=== PATIENT | female | born 1955 | race Caucasian/White ===

== ENCOUNTER 2017-05-25 14:12 | Inpatient (IN) | payer MEDICARE, MEDICAID ==
[~2017-05-25] VITALS: Ht 154.9 cm; Wt 68.0 kg
[~2017-05-25 14:12] MED LIST changes: -GLIM2TAB43 PO; -LEVO112T44 PO; -MECL25TA27 PO; -MELA5TAB6 PO
--- NOTE | 2017-05-25 14:47 | EKG ---
FACILITY: [facility] - [place] PATIENT NAME: FABIENNE ABERNATHY : [id number] MR: [id number] V: [id number] EXAM DATE: ORDERING PHYSICIAN: JAZZ PATTON TECHNOLOGIST: MARY KAY Ogden Reason : Blood Pressure : / mmHG Vent. Rate : 098 BPM Atrial Rate : 098 BPM P-R Int : 154 ms QRS Dur : 068 ms QT Int : 354 ms P-R-T Axes : 059 022 025 degrees QTc Int : 451 ms Normal sinus rhythm Normal ECG When compared with ECG of 03-DEC-2016 19:08, PA interval has decreased Confirmed by VALARIE GRIFFITH ([id number]) on 05/25/2017 4:41:00 PM Referred By: FERNANDEZ Confirmed By:VALARIE GRIFFITH
--- NOTE | 2017-05-25 14:56 | ER Report ---
History and Physical Time Seen By MD: 14:15 Hx. of Stated Complaint: MULTIPLE EPISODES OF SYNCOPE HPI/ROS CHIEF COMPLAINT: Dizziness, falls HISTORY OF PRESENT ILLNESS: Patient is a 61-year-old female who presents the ED with complaint of dizziness and frequent falls. She states that this started 4 days ago when she started noticing she feels imbalance. She states that sometimes she will just lower herself to the floor but other times she would fall. She does not believe she is she having syncopal episodes. She states that she does have a history of Mnire's disease and this feels like a very severe episode of that. She states that she did take some meclizine with some minimal relief. She has had some nausea but denies any vomiting. She denies any abdominal pain. She has not noted any diarrhea. The nurse noted today that she did have a slightly elevated temperature and 100.7. Height. She states that she has not noted a fever at home but has felt some chills intermittently. She denies much coughing. She has not noted any dysuria or hematuria. She denies any chest pain or shortness of breath. She does not normally wear oxygen at home. The nurse noted that her oxygen saturation on admission here was 86% on room air didn't place her on some oxygen therapy. His that she has been noticing a headache on the right back of her head. She states that she did fall and hit her head in the last 2 days. REVIEW OF SYSTEMS: Constitutional: No fever, no chills. Eyes: No discharge. ENT: No sore throat. Cardiovascular: No chest pain, no palpitations. Respiratory: See history of present illness. Gastrointestinal: See history of present illness. Genitourinary: See history of present illness. Musculoskeletal: No back pain. Skin: No rashes. Neurological: No headache. Allergies: Coded Allergies: atenolol (Verified Allergy, Intermediate, heart palpitations, 10/10/16) droperidol (Verified Allergy, Intermediate, DRIVES HER CRAZY, 10/10/16) oxycodone (Unverified Allergy, Unknown, HALLUCINATIONS, 10/10/16) "SAYS WHEN CAN COMBINED WITH ANESTHESIA CAUSES HALLUCINCATIONS" promethazine HCl (Verified Adverse Reaction, Intermediate, VOMITING, ) Sulfa (Sulfonamide Antibiotics) (Verified Adverse Reaction, Unknown, NAUSEA, 10/10/16) Home Meds Active Scripts Pantoprazole Sodium (PANTOPRAZOLE SODIUM) 40 Mg Tablet.dr, 1 TAB PO QDAY, #60 TAB.SR 3 Refills Prov:SETH PUENTES MD 11/21/16 Reported Medications Calcium Carbonate (TUMS) 200 Mg Tab.chew, 200 MG PO PRN, TAB.CHEW 11/21/16 Phenazopyridine Hcl (PHENAZOPYRIDINE HCL) 200 Mg Tablet, 200 MG PO TID Y for SPASMS, #30 TAB 0 Refills 10/18/16 Tramadol Hcl (TRAMADOL HCL) 50 Mg Tablet, 50 MG PO Q4-6H Y for PAIN, TAB 10/10/16 Aspirin (ASPIRIN) 81 Mg Tab.chew, 81 MG PO QDAY, TAB.CHEW 05/25/15 Estrogens Conjugated (PREMARIN) 0.3 Mg Tab, 0.3 MG PO QDAY, TAB 04/26/15 Metformin Hcl (METFORMIN HCL) 1,000 Mg Tablet, 1 TAB PO BID TAKE ONE TABLET BY MOUTH TWO TIMES A DAY 07/21/14 Lamotrigine (LAMICTAL) 200 Mg Tablet, 200 MG PO DAILY 07/21/14 Alprazolam (XANAX) 1 Mg Tablet, 1 TAB PO QID Y for ANXIETY TAKE ONE TABLET BY MOUTH FOUR TIMES A DAY 07/21/14 Thyroid,Pork (ARMOUR THYROID) Unknown Strength Tablet, 75 MG PO QDAY 07/21/14 Discontinued Reported Medications Dulaglutide (Trulicity) 0.75 Mg/0.5 Ml Pen.injctr, 0.75 MG IM 12/03/16 Ibuprofen (IBUPROFEN) 600 Mg Tablet, 1 TAB PO Q6H Y for PAIN, #20 TAB 0 Refills 10/18/16 Docusate Sodium (COLACE) 100 Mg Capsule, 100 MG PO BID Y for CONSTIPATION, #30 CAPSULE 0 Refills 10/18/16 Melatonin (MELATONIN) Unknown Strength Tablet, PO QHS 09/24/16 Reviewed Nurses Notes: Yes Old Medical Records Reviewed: Yes Hx Smoking: No Smoking Status: Never Smoker Exposure to Second Hand Smoke?: No Hx Substance Use Disorder: No Hx Alcohol Use: No Constitutional Vital Sign - Last 24 Hours 05/25/17 05/25/17 05/25/17 05/25/17 14:13 14:13 14:30 14:48 Temp 100.7 Pulse 102 Resp 16 33 B/P (MAP) 104/67 104/51 (68) Pulse Ox 94 99 96 O2 Delivery Nasal Cannula Nasal Cannula O2 Flow Rate 2.0 4.0 05/25/17 15:00 Pulse 96 Resp 27 Physical Exam General Appearance: The patient is alert, has no immediate need for airway protection and no signs of toxicity. She appears to be no acute distress. Eyes: Pupils equal and round no pallor or injection. EOMs are full bilaterally. ENT, Mouth: Mucous membranes are moist. Respiratory: There are no retractions, lungs are clear to auscultation. Cardiovascular: Regular rate and rhythm. Gastrointestinal: Abdomen is soft and non tender, no masses, bowel sounds normal. Neurological: Cranial nerves II-12 intact. Normal finger to nose test bilaterally. Skin: Warm and dry, no rashes. Musculoskeletal: Neck is supple non tender. Extremities are nontender, nonswollen and have full range of motion. DIFFERENTIAL DIAGNOSIS: After history and physical exam differential diagnosis was considered for dizziness including but not limited to peripheral and central causes of vertigo, orthostatic causes including dehydration, and blood loss. Medical Decision Making Data Points Result Diagram: 05/25/17 1605 05/25/17 1605 Laboratory Hematology Test 05/25/17 15:46 05/25/17 16:05 Urine Color Yellow Urine Clarity Cloudy Urine pH 5.0 pH (4.8-9.5) Urine Specific [place] 1.015 Urine Protein 100 mg/dL (NEGATIVE) Urine Glucose (UA) Negative mg/dL (NEGATIVE) Urine Ketones 20 mg/dL (NEGATIVE) Urine Blood Large (NEGATIVE) Urine Nitrite Negative (NEGATIVE) Urine Bilirubin Negative (NEGATIVE) Urine Urobilinogen Negative mg/dL (0.2-1.9) Urine Leukocyte Esterase Large (NEGATIVE) Urine RBC 9 /HPF (0-2/HPF) Urine WBC 362 /HPF (0-5/HPF) Urine WBC Clumps Many /HPF Urine Squamous Epithelial Cells Many /LPF (</=FEW) Urine Bacteria Many /HPF (NONE-FEW) Urine Mucus Few /HPF (NONE-FEW) Red Blood Count 4.08 M/uL (4.17-5.56) Mean Corpuscular Volume 83.7 fL (80.0-96.0) Mean Corpuscular Hemoglobin 28.8 pg (26.0-33.0) Mean Corpuscular Hemoglobin Concent 34.4 g/dL (32.0-36.0) Red Cell Distribution Width 14.0 % (11.5-14.5) Mean Platelet Volume 7.1 fL (7.2-11.1) Neutrophils (%) (Auto) 82.6 % (39.4-72.5) Lymphocytes (%) (Auto) 8.0 % (17.6-49.6) Monocytes (%) (Auto) 8.9 % (4.1-12.4) Eosinophils (%) (Auto) 0.1 % (0.4-6.7) Basophils (%) (Auto) 0.4 % (0.3-1.4) Nucleated RBC Relative Count (auto) 0.0 /100WBC Neutrophils # (Auto) 14.5 K/uL (2.0-7.4) Lymphocytes # (Auto) 1.4 K/uL (1.3-3.6) Monocytes # (Auto) 1.6 K/uL (0.3-1.0) Eosinophils # (Auto) 0.0 K/uL (0.0-0.5) Basophils # (Auto) 0.1 K/uL (0.0-0.1) Nucleated RBC Absolute Count (auto) 0.00 K/uL Sodium Level 135 mmol/L (137-145) Potassium Level 3.8 mmol/L (3.5-5.0) Chloride Level 98 mmol/L (98-107) Carbon Dioxide Level 21 mmol/L (22-31) Blood Urea Nitrogen 15 mg/dl (7-18) Creatinine 0.80 mg/dl (0.52-1.04) Glomerular Filtration Rate Calc > 60.0 Random Glucose 149 mg/dl (75-110) Calcium Level 9.0 mg/dl (8.4-10.2) Total Bilirubin 0.7 mg/dl (0.2-1.3) Aspartate Amino Transf (AST/SGOT) 15 U/L (0-35) Alanine Aminotransferase (ALT/SGPT) 41 U/L (0-56) Alkaline Phosphatase 103 U/L (0-126) Troponin I < 0.012 ng/ml Total Protein 6.7 gm/dl (6.3-8.2) Albumin 3.4 g/dl (3.5-5.0) Chemistry Test 05/25/17 15:46 05/25/17 16:05 Urine Color Yellow Urine Clarity Cloudy Urine pH 5.0 pH (4.8-9.5) Urine Specific [place] 1.015 Urine Protein 100 mg/dL (NEGATIVE) Urine Glucose (UA) Negative mg/dL (NEGATIVE) Urine Ketones 20 mg/dL (NEGATIVE) Urine Blood Large (NEGATIVE) Urine Nitrite Negative (NEGATIVE) Urine Bilirubin Negative (NEGATIVE) Urine Urobilinogen Negative mg/dL (0.2-1.9) Urine Leukocyte Esterase Large (NEGATIVE) Urine RBC 9 /HPF (0-2/HPF) Urine WBC 362 /HPF (0-5/HPF) Urine WBC Clumps Many /HPF Urine Squamous Epithelial Cells Many /LPF (</=FEW) Urine Bacteria Many /HPF (NONE-FEW) Urine Mucus Few /HPF (NONE-FEW) White Blood Count 17.5 k/uL (4.5-11.0) Red Blood Count 4.08 M/uL (4.17-5.56) Hemoglobin 11.8 g/dL (12.0-16.0) Hematocrit 34.1 % (34.0-47.0) Mean Corpuscular Volume 83.7 fL (80.0-96.0) Mean Corpuscular Hemoglobin 28.8 pg (26.0-33.0) Mean Corpuscular Hemoglobin Concent 34.4 g/dL (32.0-36.0) Red Cell Distribution Width 14.0 % (11.5-14.5) Platelet Count 407 K/uL (150-450) Mean Platelet Volume 7.1 fL (7.2-11.1) Neutrophils (%) (Auto) 82.6 % (39.4-72.5) Lymphocytes (%) (Auto) 8.0 % (17.6-49.6) Monocytes (%) (Auto) 8.9 % (4.1-12.4) Eosinophils (%) (Auto) 0.1 % (0.4-6.7) Basophils (%) (Auto) 0.4 % (0.3-1.4) Nucleated RBC Relative Count (auto) 0.0 /100WBC Neutrophils # (Auto) 14.5 K/uL (2.0-7.4) Lymphocytes # (Auto) 1.4 K/uL (1.3-3.6) Monocytes # (Auto) 1.6 K/uL (0.3-1.0) Eosinophils # (Auto) 0.0 K/uL (0.0-0.5) Basophils # (Auto) 0.1 K/uL (0.0-0.1) Nucleated RBC Absolute Count (auto) 0.00 K/uL Glomerular Filtration Rate Calc > 60.0 Calcium Level 9.0 mg/dl (8.4-10.2) Total Bilirubin 0.7 mg/dl (0.2-1.3) Aspartate Amino Transf (AST/SGOT) 15 U/L (0-35) Alanine Aminotransferase (ALT/SGPT) 41 U/L (0-56) Alkaline Phosphatase 103 U/L (0-126) Troponin I < 0.012 ng/ml Total Protein 6.7 gm/dl (6.3-8.2) Albumin 3.4 g/dl (3.5-5.0) Urinalysis Test 05/25/17 15:46 Urine Color Yellow Urine Clarity Cloudy Urine pH 5.0 pH (4.8-9.5) Urine Specific [place] 1.015 Urine Protein 100 mg/dL (NEGATIVE) Urine Glucose (UA) Negative mg/dL (NEGATIVE) Urine Ketones 20 mg/dL (NEGATIVE) Urine Blood Large (NEGATIVE) Urine Nitrite Negative (NEGATIVE) Urine Bilirubin Negative (NEGATIVE) Urine Urobilinogen Negative mg/dL (0.2-1.9) Urine Leukocyte Esterase Large (NEGATIVE) Urine RBC 9 /HPF (0-2/HPF) Urine WBC 362 /HPF (0-5/HPF) Urine WBC Clumps Many /HPF Urine Squamous Epithelial Cells Many /LPF (</=FEW) Urine Bacteria Many /HPF (NONE-FEW) Urine Mucus Few /HPF (NONE-FEW) EKG/Imaging EKG Interpretation 12 lead EKG: Rhythm: Normal sinus rhythm, rate 90 bpm Bridger: normal QRS: normal ST segments: No acute ST changes identified. There is some T-wave inversion in V1. Imaging CXR: IMPRESSION: 1. No acute cardiopulmonary process. Report Dictated By: Roberth Pressley at 05/25/2017 4:42 PM Report E-Signed By: Roberth Pressley at 05/25/2017 4:[address] Head: IMPRESSION: 1. Mild senescent changes without acute abnormality. Report Dictated By: Roberth Pressley at 05/25/2017 4:44 PM Report E-Signed By: Roberth Pressley at 05/25/2017 4:47 PM ED Course/Re-evaluation Clinical Indication for ER IV: Hydration ED Course Will obtain labs, EKG, chest x-ray, urinalysis, CT of the head. 05/25/2017 5:27:39 pm - discussed all labs, EKG, chest x-ray, CT of the head with patient. She does have some leukocytosis with left shift. Her urinalysis does indicate signs of infection. She does not have any acute intracranial injury. It appears that she does have a urinary tract infection and appears to be febrile from this. This could be a contributor factor to her falls and syncope. Discussed patient with Dr. Dubon, hospitalist, who will come and evaluate the patient. 05/25/2017 6:29:17 pm - was, Clara patient under his care. Patient was given 1 g IV Rocephin 1 L normal saline after blood cultures and lactate was completed. Decision to Disposition Date: May 25, 2017 Decision to Disposition Time: 18:29 Depart Departure Latest Vital Signs Vital Signs Date Time Temp Pulse Resp B/P (MAP) Pulse Ox O2 Delivery O2 Flow Rate FiO2 05/25/17 15:00 96 27 05/25/17 14:48 96 Nasal Cannula 4.0 05/25/17 14:30 104/51 (68) 05/25/17 14:13 100.7 Impression: Primary Impression: Urinary tract infection Additional Impressions: Falls Dizziness Condition: Improved Disposition: Admitted from ER Referrals: EILEEN HERNANDEZ PA-C (PCP) SENIOR POWER SCHEDULER/PA consult with MD: Examined Patient MD Consult Note: Dr. Dubon, Hospitalist Problem Qualifiers Primary Impression: Urinary tract infection Urinary tract infection type: acute cystitis Hematuria presence: without hematuria Qualified Codes: N30.00 - Acute cystitis without hematuria Additional Impressions: Falls Encounter type: initial encounter Qualified Codes: W19.XXXA - Unspecified fall, initial encounter JAZZ PATTON PA-C May 25, 2017 14:56
[2017-05-25 16:10] LABS: PLATELET COUNT, AUTOMATED 407 K/uL (150-450)
--- NOTE | 2017-05-25 16:47 | RADIOLOGY IMAGING REPORT ---
FACILITY: [facility] - [place] PATIENT NAME: Kristen Trinh : 1955 MR: [id number] V: [id number] EXAM DATE: ORDERING PHYSICIAN: JAZZ PATTON TECHNOLOGIST: Location: [facility] - [place] Patient: Kristen Trinh : 1955 Visit/Account:[id number] Date of Sevice: 05/25/2017 2 VIEWS CHEST INDICATION: Fever and dizziness. COMPARISON: 02/20/2015. FINDINGS: Cardiomediastinal silhouette and pulmonary vessels within normal limits. There is no focal infiltrate or lobar consolidation. There is no pneumothorax or pleural effusion. No nodule. Upper abdomen is unremarkable. No acute bony abnormality. IMPRESSION: 1. No acute cardiopulmonary process. Report Dictated By: Roberth Pressley at 05/25/2017 4:42 PM Report E-Signed By: Roberth Pressley at 05/25/2017 4:44 PM WSN:[id number]
--- NOTE | 2017-05-25 16:51 | RADIOLOGY IMAGING REPORT ---
[place] [facility] [place] NAME: Kristen Trinh : 1955 MR: [id number] V: [id number] EXAM DATE: ORDERING PHYSICIAN: JAZZ PATTON TECHNOLOGIST: Location: [facility] Patient: Kristen Trinh : 1955 Visit/Account:[id number] Date of Sevice: 05/25/2017 CT Head without contrast Indication: Dizziness and fever. Comparison: 04/26/2015. Technique: Axial CT images were obtained through the brain from the skull base to the vertex without administration of IV contrast. Reformatted coronal and sagittal images were also obtained. One of the following dose optimization techniques was utilized in the performance of this exam: autom ated exposure control; adjustment of the mA and/or kV according to the patient's size; or use of an i terative reconstruction technique. Specific details can be referenced in the facility's radiology CT exam operational policy. Findings: No evidence of mass, mass effect, or midline shift. No acute intracranial hemorrhage or acute territorial infarction. No extra axial fluid collection or hydrocephalus. Mild age-related cerebral atrophy. Mild periventric ular white matter ischemic changes consistent small vessel disease. Ortiz/white matter differentiation appears normal. Bony structures show no fractures or lesions. The visualized paranasal sinuses and mastoid air cells are clear. IMPRESSION: 1. Mild senescent changes without acute abnormality. Report Dictated By: Roberth Pressley at 05/25/2017 4:44 PM Report E-Signed By: Roberth Pressley at 05/25/2017 4:47 PM WSN:[id number]
[2017-05-25] MEDS ORDERED: cefTRIAXone 1 GM VIAL IVP ONE ×2 (17:30→20:30)
[2017-05-25] MEDS ORDERED: NS(*) 0.9% 1000 ML BAG 1,000 ML IV ONE (17:30)
[2017-05-25] MEDS ORDERED: NS(*) 0.9% 100 ML BAG 100 ML ONE (18:07)
[2017-05-25] MEDS ORDERED: traMADol 50 MG TAB PO PRN (19:35)
[2017-05-25 19:42] VITALS: BP 117/65
--- NOTE | 2017-05-25 20:28 | History & Physical ---
History of Present Illness History of Present Illness 61yo female with bipolar disorder and T2DM who presented to the ER for falls and inability to ambulate. She was in her normal state of health until 4 days ago. She developed chills, thirst, and dizziness with attempting to walk. It was different dizziness from her Meniere's disease. She denies the sensation of the room spinning or tunnel vision. She would try to get up and then would fall down. She would have to lay on the ground for awhile and then would be able to get up and walk. She denies LOC, but hit her head and body on numerous things throughout her house. It continued, such that she started crawling around her house. The chills have persisted. She denies cp/sob/dysuria/ abdominal pain/cough/nausea/vomiting/diarrhea. History Problems: (1) History of hysterectomy (2) History of thyroidectomy Status: Chronic (3) History of knee replacement procedure of right knee (4) Dysphagia Onset Date: 07/21/2014 Status: Chronic (5) Rectocele Status: Chronic (6) GERD (gastroesophageal reflux disease) Status: Chronic (7) Bipolar disorder Status: Chronic (8) Meniere disease Status: Acute (9) Heart palpitations (10) Diabetes mellitus type 2, uncontrolled Status: Chronic (11) Infection of wound due to methicillin resistant Staphylococcus aureus (MRSA ) Home Meds Active Scripts Pantoprazole Sodium (PANTOPRAZOLE SODIUM) 40 Mg Tablet.dr, 1 TAB PO QDAY, #60 TAB.SR 3 Refills Prov:SETH PUENTES MD 11/21/16 Reported Medications Calcium Carbonate (TUMS) 200 Mg Tab.chew, 200 MG PO PRN, TAB.CHEW 11/21/16 Phenazopyridine Hcl (PHENAZOPYRIDINE HCL) 200 Mg Tablet, 200 MG PO TID Y for SPASMS, #30 TAB 0 Refills 10/18/16 Tramadol Hcl (TRAMADOL HCL) 50 Mg Tablet, 50 MG PO Q4-6H Y for PAIN, TAB 10/10/16 Aspirin (ASPIRIN) 81 Mg Tab.chew, 81 MG PO QDAY, TAB.CHEW 05/25/15 Estrogens Conjugated (PREMARIN) 0.3 Mg Tab, 0.3 MG PO QDAY, TAB 04/26/15 Metformin Hcl (METFORMIN HCL) 1,000 Mg Tablet, 1 TAB PO BID TAKE ONE TABLET BY MOUTH TWO TIMES A DAY 07/21/14 Lamotrigine (LAMICTAL) 200 Mg Tablet, 200 MG PO DAILY 07/21/14 Alprazolam (XANAX) 1 Mg Tablet, 1 TAB PO QID Y for ANXIETY TAKE ONE TABLET BY MOUTH FOUR TIMES A DAY 07/21/14 Thyroid,Pork (ARMOUR THYROID) Unknown Strength Tablet, 75 MG PO QDAY 07/21/14 Discontinued Reported Medications Dulaglutide (Trulicity) 0.75 Mg/0.5 Ml Pen.injctr, 0.75 MG IM 12/03/16 Ibuprofen (IBUPROFEN) 600 Mg Tablet, 1 TAB PO Q6H Y for PAIN, #20 TAB 0 Refills 10/18/16 Docusate Sodium (COLACE) 100 Mg Capsule, 100 MG PO BID Y for CONSTIPATION, #30 CAPSULE 0 Refills 10/18/16 Melatonin (MELATONIN) Unknown Strength Tablet, PO QHS 09/24/16 Allergies: Coded Allergies: atenolol (Verified Allergy, Intermediate, heart palpitations, 10/10/16) droperidol (Verified Allergy, Intermediate, DRIVES HER CRAZY, 10/10/16) oxycodone (Unverified Allergy, Unknown, HALLUCINATIONS, 10/10/16) "SAYS WHEN CAN COMBINED WITH ANESTHESIA CAUSES HALLUCINCATIONS" promethazine HCl (Verified Adverse Reaction, Intermediate, VOMITING, ) Sulfa (Sulfonamide Antibiotics) (Verified Adverse Reaction, Unknown, NAUSEA, 10/10/16) Patient History: FH: bipolar disorder MOTHER Siblings FH: colon cancer FATHER MOTHER Hx Smoking: No Smoking Status: Never Smoker Exposure to Second Hand Smoke?: No Caffeine Intake: Soda Caffeine/Cups Per Day: 1 Hx Alcohol Use: Yes Hx Substance Use Disorder: No Social Drug Use: Never History of IV Drug Use: No Review of Systems All Systems Reviewed/Normal: Yes, Except as Noted Exam Vital Signs Vital Signs Date Time Temp Pulse Resp B/P (MAP) Pulse Ox O2 Delivery O2 Flow Rate FiO2 05/25/17 19:42 98.2 89 18 117/65 (82) 99 Nasal Cannula 2.0 General Appearance: Alert, Awake, No Acute Distress (, but tearful at times. Breathing comfortably.) Neuro: No Gross deficits Eyes: PERRLA ENT: Moist Mucous Membranes Cardiovascular: Regular Rate and Rhythm Respiratory: Clear to Auscultation GI: Abd Soft and Non-Tender Extremities: No Edema Integumentary: No Jaundice, No Cyanosis Medical Decision Making Data Points Result Diagram: 05/25/17 1605 05/25/17 1605 Item Value Date Time Neutrophils (%) (Auto) 82.6 % H 05/25/17 1605 Lymphocytes (%) (Auto) 8.0 % L 05/25/17 1605 Monocytes (%) (Auto) 8.9 % 05/25/17 1605 Eosinophils (%) (Auto) 0.1 % L 05/25/17 1605 Basophils (%) (Auto) 0.4 % 05/25/17 1605 Lactate 0.9 mmol/L 05/25/17 1831 Aspartate Amino Transf (AST/SGOT) 15 U/L 05/25/17 1605 Alanine Aminotransferase (ALT/SGPT) 41 U/L 05/25/17 1605 Alkaline Phosphatase 103 U/L 05/25/17 1605 Troponin I < 0.012 ng/ml 05/25/17 1605 Urine Leukocyte Esterase Large H 05/25/17 1546 Urine RBC 9 /HPF 05/25/17 1546 Urine WBC 362 /HPF 05/25/17 1546 Urine WBC Clumps Many /HPF 05/25/17 1546 Urine Squamous Epithelial Cells Many /LPF H 05/25/17 1546 Urine Bacteria Many /HPF H 05/25/17 1546 Urine Ketones 20 mg/dL H 05/25/17 1546 Urine Protein 100 mg/dL 05/25/17 1546 EKG / Imaging EKG Interpretation Vent. Rate : 098 BPM Atrial Rate : 098 BPM P-R Int : 154 ms QRS Dur : 068 ms QT Int : 354 ms P-R-T Axes : 059 022 025 degrees QTc Int : 451 ms Normal sinus rhythm Normal ECG When compared with ECG of 03-DEC-2016 19:08, VT interval has decreased Confirmed by VALARIE GRIFFITH ([id number]) on 05/25/2017 4:41:00 PM Imaging CXR - 1. No acute cardiopulmonary process. Head CT - 1. Mild senescent changes without acute abnormality. Assessment and Plan Problems: (1) Urinary tract infection Status: Acute Assessment & Plan: She presented with 4 days of chills and weakness with falls. She is febrile, has an elevated wbc and has many wbc on the UA (she refused a catheter specimen). Her lactate, BP are normal. She was given a dose of Rocephin in the ER which will be continued but at 2g q24h. Blood and urine cultures are pending. (2) Falls Status: Acute Assessment & Plan: It appears to be related to the UTI. She has a h/o of Meniere's but she reports these symptoms of dizziness are different. She is getting hydrated and then will try to ambulate in the morning and potentially check orthostatic pressures if she remains symptomatic. (3) Bipolar disorder Status: Chronic Assessment & Plan: Continue Lamictal and prn Xanax. (4) Dysphagia Status: Chronic Assessment & Plan: She has had a dilatation for a stricture, but still having some problems. She is followed by Dr. Puentes. On Protonix chronically. (5) Diabetes mellitus type 2, uncontrolled Status: Chronic Assessment & Plan: She is chronically on metformin and Amaryl. Will hold metformin until she is less acutely ill. (6) History of thyroidectomy Status: Chronic Assessment & Plan: Continue levothyroxine. Copies to: EILEEN HERNANDEZ PA-C; [facility] [employer] RN Venous Thromboembolism Antithrombotics Is Pt On Any Antithrombotics?: No Exam Sepsis Risk: No Definite Risk Problem Qualifiers (1) Urinary tract infection: Urinary tract infection type: acute cystitis Hematuria presence: without hematuria Qualified Codes: N30.00 - Acute cystitis without hematuria (2) Falls: Encounter type: initial encounter Qualified Codes: W19.XXXA - Unspecified fall, initial encounter VALARIE GRIFFITH MD May 25, 2017 20:28
[2017-05-25] MEDS ORDERED: LEVO112T44 PO (20:31)
[2017-05-25] MEDS ORDERED: METO25TA93 PO (20:31)
[2017-05-25] MEDS ORDERED: MECL25TA27 PO (20:31)
[2017-05-25] MEDS ORDERED: GLIM2TAB43 PO (20:31)
[2017-05-25] MEDS ORDERED: MELA5TAB6 PO (20:31)
[2017-05-25] MEDS: MELATONIN 3 MG TAB PO SCH (21:00)
[2017-05-25] MEDS: NS(*) 0.9% 1000 ML BAG 1,000 ML IV PRN (21:11)
[2017-05-25] MEDS: lamoTRIgine 100 MG TAB PO SCH (21:12)
[2017-05-25] MEDS: ACETAMINOPHEN 500 MG TAB PO PRN (22:19)
[2017-05-25] MEDS: ALPRAZolam 1 MG TAB PO PRN (22:19)
[2017-05-25] MEDS: INSULIN HUM LISPRO 100 UN/ML 3 ML VIAL SUBQ PRN (22:19)
[2017-05-26] VITALS (7 sets, daily range): BP systolic 90–126; BP diastolic 51–69; Ht 154.9 cm; Wt 68.0 kg
[2017-05-26] MEDS: ACETAMINOPHEN 500 MG TAB PO PRN ×2 (06:26→19:59)
[2017-05-26] MEDS: LEVOTHYROXINE SOD 0.112 MG TAB PO SCH (06:26)
[2017-05-26] MEDS: NS(*) 0.9% 1000 ML BAG 1,000 ML IV PRN ×2 (07:13→18:01)
--- NOTE | 2017-05-26 08:33 | Hospitalist Progress Note ---
Subjective Progress Notes Subjective She has had fevers to 101 overnight. Some nausea this morning. Physical Exam Vital Signs Date Time Temp Pulse Resp B/P (MAP) Pulse Ox O2 Delivery O2 Flow Rate FiO2 05/26/17 07:32 91 Nasal Cannula 0.5 05/26/17 07:32 100.5 94 16 106/53 (70) Intake and Output 05/27/17 07:00 Intake Total 1000 ml Balance 1000 ml IV Total 1000 ml # Voids 1 General Appearance: Alert, Awake, No Acute Distress GI: Soft and Non-Tender Result Diagram: 05/25/17 1605 05/25/17 1605 Assessment and Plan Problems: (1) Urinary tract infection Status: Acute Assessment & Plan: She presented with 4 days of chills and weakness with falls. She is febrile, has an elevated wbc and has many wbc on the UA (she refused a catheter specimen). Her lactate, BP are normal. She was given a dose of Rocephin in the ER which will be continued but at 2g q24h. Blood and urine cultures are pending. Awaiting labs from this morning. (2) Falls Status: Acute Assessment & Plan: It appears to be related to the UTI. She has a h/o of Meniere's but she reports these symptoms of dizziness are different. She is getting hydrated and then will try to ambulate and potentially check orthostatic pressures if she remains symptomatic. (3) Bipolar disorder Status: Chronic Assessment & Plan: Continue Lamictal and prn Xanax. (4) Dysphagia Onset Date: 07/21/2014 Status: Chronic Assessment & Plan: She has had a dilatation for a stricture, but still having some problems. She is followed by Dr. Mccarthy. On Protonix chronically. (5) Diabetes mellitus type 2, uncontrolled Status: Chronic Assessment & Plan: She is chronically on metformin and Amaryl. Will hold metformin until she is less acutely ill. (6) History of thyroidectomy Status: Chronic Assessment & Plan: Continue levothyroxine. Exam Sepsis Risk: Sepsis Risk Problem Qualifiers (1) Urinary tract infection: Urinary tract infection type: acute cystitis Hematuria presence: without hematuria Qualified Codes: N30.00 - Acute cystitis without hematuria (2) Falls: Encounter type: initial encounter Qualified Codes: W19.XXXA - Unspecified fall, initial encounter VALARIE GRIFFITH MD May 26, 2017 08:33
[2017-05-26] MEDS: PANTOPRAZOLE SOD 40 MG TABEC PO SCH (08:47)
[2017-05-26] MEDS: ASPIRIN 81 MG CHEW PO SCH (08:54)
[2017-05-26] MEDS: ESTROGENS CONJ 0.3 MG TAB PO SCH (08:54)
[2017-05-26] MEDS: ENOXAPARIN 40 MG/0.4ML SYR SC SCH (08:56)
[2017-05-26] MEDS: INSULIN HUM LISPRO 100 UN/ML 3 ML VIAL SUBQ PRN ×2 (08:56→12:30)
[2017-05-26 09:01] LABS: PLATELET COUNT, AUTOMATED 395 K/uL (150-450)
[2017-05-26] MEDS: ONDANSETRON 4 MG/2 ML VIAL IVP PRN ×2 (09:01→20:00)
[2017-05-26] MEDS: metFORMIN HCL 500 MG TAB PO SCH ×2 (10:28→16:22)
[2017-05-26] MEDS: GLIMEPIRIDE 2 MG TAB PO SCH (12:30)
[2017-05-26] MEDS: ALPRAZolam 1 MG TAB PO PRN (16:22)
[2017-05-26] MEDS: cefTRIAXone 2 GM VIAL IVP SCH (18:32)
[2017-05-26] MEDS: MELATONIN 3 MG TAB PO SCH (21:00)
[2017-05-26] MEDS: lamoTRIgine 100 MG TAB PO SCH (21:04)
[2017-05-27] VITALS (7 sets, daily range): BP systolic 102–135; BP diastolic 57–75
[2017-05-27] MEDS: ACETAMINOPHEN 500 MG TAB PO PRN ×3 (04:08→23:37)
[2017-05-27] MEDS: ONDANSETRON 4 MG/2 ML VIAL IVP PRN (05:13)
[2017-05-27] MEDS: LEVOTHYROXINE SOD 0.112 MG TAB PO SCH (05:20)
[2017-05-27 06:19] LABS: PLATELET COUNT, AUTOMATED 389 K/uL (150-450)
[2017-05-27] MEDS: NS(*) 0.9% 1000 ML BAG 1,000 ML IV PRN (06:34)
[2017-05-27] MEDS: PANTOPRAZOLE SOD 40 MG TABEC PO SCH (08:07)
[2017-05-27] MEDS: ASPIRIN 81 MG CHEW PO SCH (08:14)
[2017-05-27] MEDS: ENOXAPARIN 40 MG/0.4ML SYR SC SCH (08:14)
[2017-05-27] MEDS: ESTROGENS CONJ 0.3 MG TAB PO SCH (08:15)
[2017-05-27] MEDS: metFORMIN HCL 500 MG TAB PO SCH ×2 (08:15→17:24)
[2017-05-27] MEDS ORDERED: NS(*) 0.9% 1000 ML BAG 1,000 ML IV PRN (09:53)
[2017-05-27] MEDS: ALPRAZolam 1 MG TAB PO PRN ×2 (10:28→21:50)
[2017-05-27] MEDS: MECLIZINE HCL 25 MG TAB PO PRN ×2 (11:41→19:36)
[2017-05-27] MEDS: GLIMEPIRIDE 2 MG TAB PO SCH (12:16)
--- NOTE | 2017-05-27 13:22 | Hospitalist Progress Note ---
Subjective Progress Notes Subjective Patient has complaints of diarrhea this morning. She also has been dizzy, which she believes is her Mienere's disease. Patient Complains of: Cardiovascular: No: Chest Pain Respiratory: No: Shortness of Breath Gastrointestinal: No Nausea, No Vomiting Physical Exam Vital Signs Date Time Temp Pulse Resp B/P (MAP) Pulse Ox O2 Delivery O2 Flow Rate FiO2 05/27/17 11:30 98.5 18 102/69 (80) 91 Room Air 05/27/17 07:30 2.0 05/27/17 07:30 93 81 Intake and Output 05/28/17 07:00 Intake Total 126 ml Balance 126 ml IV Total 126 ml # Voids 2 # Bowel Movements 2 General Appearance: Alert, Awake, No Acute Distress, Afebrile Cardiovascular: Regular Rate and Rhythm Respiratory: No Respiratory Distress, Clear to Auscultation GI: Soft and Non-Tender : Normal Extremities: No Edema Psych: Alert & Oriented X3 Result Diagram: 05/27/17 0555 05/27/17 0555 Assessment and Plan Problems: (1) Urinary tract infection Status: Acute Assessment & Plan: She presented with 4 days of chills and weakness with falls. She is febrile, has an elevated WBC and has many WBC on the UA (she refused a catheter specimen). Her lactate, BP are normal. She was given a dose of Rocephin in the ER which will be continued but at 2g q24h. Blood cultures are negative and urine culture shows Klebsiella. Rocephin is susceptible to the infection. (2) Falls Status: Acute Assessment & Plan: It appears to be related to the UTI. She has a h/o of Meniere's but she reports these symptoms of dizziness are different. She would like to try the Meclizine to see if the helps her dizziness. (3) Diarrhea Status: Acute Assessment & Plan: She has had diarrhea since she has been admitted. The patient denies abdominal pain, nausea or vomiting. She has decreased potassium this morning to 3.2. She will receive a K-Allen and will get Potassium added to her normal saline. She will also have her stool tested to assure she doesn't have C-Diff. (4) Bipolar disorder Status: Chronic Assessment & Plan: Continue Lamictal and prn Xanax. (5) Dysphagia Onset Date: 07/21/2014 Status: Chronic Assessment & Plan: She has had a dilatation for a stricture, but still having some problems. She is followed by Dr. Mccarthy. (6) Diabetes mellitus type 2, uncontrolled Status: Chronic Assessment & Plan: She is chronically on metformin and Amaryl. Will hold metformin until she is less acutely ill. (7) History of thyroidectomy Status: Chronic Assessment & Plan: Continue levothyroxine. Exam Sepsis Risk: No Definite Risk Problem Qualifiers (1) Urinary tract infection: Urinary tract infection type: acute cystitis Hematuria presence: without hematuria Qualified Codes: N30.00 - Acute cystitis without hematuria (2) Falls: Encounter type: initial encounter Qualified Codes: W19.XXXA - Unspecified fall, initial encounter RANI HENNING May 27, 2017 13:22
[2017-05-27] MEDS ORDERED: KCL (*) 20 MEQ/100 ML PREMIX 100 ML IV ONE (13:30)
[2017-05-27] MEDS ORDERED: KCL/NS* 20 MEQ/1000 ML PREMIX 1,000 ML IV SCH ×2 (15:00→22:48)
--- NOTE | 2017-05-27 16:24 | Medical Nutrition Therapy ---
Nutrition Anthropometrics Height (Inches): 61.00 Height (Calculated Centimeters: 154.329037 Weight (Pounds): 150 Weight (Calculated Kilograms): 68.039 BMI Calculated: 28.34 Dung Nutrition Score: Adequate Dung Nutrition Risk Score: 17 Dietary Referral Nutrition Risk Factors: Unplanned Loss >10lbs Nutrition Risk Comment: dx'd with DM2 and more recently goiter and thyroid disease Physical Findings Physical Appearance: Overweight BMI 25-29 Skin Appearance Skin Appearance: Edema Edema Location Modifier: Edema Location: Type of Edema: Degree of Edema: Gastrointestinal Symptoms GI Symtoms: Change in Bowel Pattern Tube Present: Bowel Sounds: Recent Bowel Pattern: Stool Characteristics: Nutritional Diagnosis Nutritional Risk Acuity 2: Unintended Wt Loss >5%/mo Nutritional Risk Acuity 3: Fair Appetite, Nausea Past Medical History: dysphagia, bipolar, T2DM Nutritional Acuity: 2-Moderate Nutrition Diagnosis: Involuntary Wt. Loss Nutrition Etiology: Physiological Causes Nutrition Problem/Etiology/Sym: per pt reported unintended wt loss > 10# Energy Requirement: 1550 (M- StJ) Protein Requirement: 68 (1gm/kg) Fluid Requirement: 2040 (30ml/kg) Diet Type: Diabetic Nutrition Intervention: Cont diet as ordered, Encourage intake Nutrition Monitoring & Eval Nutrition Goals: Eat 75-100% Meal RD Patient Assessment Time: [address] Assessment Type: RD Assessment Patient Nutrition Acuity: 2-Moderate Follow Up Date: Jun 01, 2017 Nutritional Comment: 05/25 Pt admitted with frequent fall r/t UTI. Pt has dx of T2DM. BG elevated up to 247. Pt has hx of dyspagia but no diet modifications. Pt on ADA diet. ate 75% of first meal in facility. Pt reporting diarrhea and nausea which may be affecting intake. Pt reporting wt loss. BMI is in overwt class. Will cont to monitor and encourage intake. 05/27 Attempted to discuss wt loss, pt asleept X2 attempts. Pt eating 75% of meals. Will cont to monitor and encourage intake. SHAYE VERA May 27, 2017 16:24
[2017-05-27] MEDS: cefTRIAXone 2 GM VIAL IVP SCH (18:51)
[2017-05-27] MEDS: MELATONIN 3 MG TAB PO SCH (21:00)
[2017-05-27] MEDS: lamoTRIgine 100 MG TAB PO SCH (21:50)
[2017-05-27] MEDS: INSULIN HUM LISPRO 100 UN/ML 3 ML VIAL SUBQ PRN (21:55)
[2017-05-27] MEDS: LOPERAMIDE HCL 2 MG CAP PO PRN (23:37)
[2017-05-28] VITALS (8 sets, daily range): BP systolic 82–165; BP diastolic 48–100
[2017-05-28] MEDS ORDERED: NS(*) 0.9% 500 ML BAG 500 ML IV ONE (04:30)
[2017-05-28] MEDS ORDERED: NS(*) 0.9% 500 ML BAG 500 ML ONE (04:31)
[2017-05-28] MEDS: LEVOTHYROXINE SOD 0.112 MG TAB PO SCH (05:15)
[2017-05-28] MEDS: metFORMIN HCL 500 MG TAB PO SCH ×2 (08:16→17:26)
[2017-05-28] MEDS: ENOXAPARIN 40 MG/0.4ML SYR SC SCH (08:17)
[2017-05-28] MEDS: ESTROGENS CONJ 0.3 MG TAB PO SCH (08:17)
[2017-05-28] MEDS: ASPIRIN 81 MG CHEW PO SCH (08:18)
[2017-05-28 08:37] LABS: PLATELET COUNT, AUTOMATED 441 K/uL (150-450)
[2017-05-28] MEDS: LOPERAMIDE HCL 2 MG CAP PO PRN ×2 (08:55→16:45)
[2017-05-28] MEDS: MECLIZINE HCL 25 MG TAB PO PRN (08:55)
[2017-05-28] MEDS ORDERED: INFLUENZA VIRUS VAC 0.5 ML SYR IM ONLY ONE (09:00)
[2017-05-28] MEDS: KCL/NS* 20 MEQ/1000 ML PREMIX 1,000 ML IV SCH (10:57)
[2017-05-28] MEDS: MAGNESIUM SUL* 2 GM/50 ML IVPB 50 ML IVPB ONE ×2 (11:00→11:06)
[2017-05-28] MEDS: ACETAMINOPHEN 500 MG TAB PO PRN ×2 (12:26→20:15)
[2017-05-28] MEDS: GLIMEPIRIDE 2 MG TAB PO SCH (12:26)
--- NOTE | 2017-05-28 13:15 | Hospitalist Progress Note ---
Subjective Progress Notes Subjective This morning, patient still has complaints of dizziness. She has tried the meclizine and feels this might have helped a little bit, but still feels like she could fall. She feels very weak also. The patient reports the diarrhea has improved today, with only one bowel movement this morning. Patient Complains of: Cardiovascular: No: Chest Pain Respiratory: No: Shortness of Breath Physical Exam Vital Signs Date Time Temp Pulse Resp B/P (MAP) Pulse Ox O2 Delivery O2 Flow Rate FiO2 05/28/17 11:19 98.6 92 16 109/61 (77) 91 Room Air 05/28/17 05:10 1.0 Intake and Output 05/29/17 07:00 Intake Total 0 ml Balance 0 ml Intake Oral 0 ml # Voids 2 # Bowel Movements 1 General Appearance: Alert, Awake, No Acute Distress, Afebrile Cardiovascular: Regular Rate and Rhythm Respiratory: No Respiratory Distress, Clear to Auscultation GI: Soft and Non-Tender Extremities: Soft and Non Tender Psych: Alert & Oriented X3 Result Diagram: 05/28/1782605/28/17826 Assessment and Plan Problems: (1) Urinary tract infection Status: Acute Assessment & Plan: She presented with 4 days of chills and weakness with falls. She is febrile, has an elevated WBC and has many WBC on the UA (she refused a catheter specimen). Her lactate, BP are normal. She was given a dose of Rocephin in the ER which will be continued but at 2g q24h. Blood cultures are negative and urine culture shows Klebsiella. Rocephin is susceptible to the infection. Today, the patient's IV infiltrated and the patient has refused another IV at this time. I spoke with patient about going home today, the patient feels like she would not be able to go home safely secondary to weakness. (2) Falls Status: Acute Assessment & Plan: It appears to be related to the UTI. She has a h/o of Meniere's but she reports these symptoms of dizziness are different. The Meclizine has seemed to decrease some of the dizziness, however, the patient still has symptoms. (3) Diarrhea Status: Acute Assessment & Plan: She has had diarrhea a few days before she was admitted. The patient denies abdominal pain, nausea or vomiting. She had decreased potassium yesterday to 3.2. She was given a K-Allen and Potassium in normal saline, which increased her Potassium to 4.1 today. Her stool was tested and was negative for C-Diff. (4) Bipolar disorder Status: Chronic Assessment & Plan: Continue Lamictal and prn Xanax. (5) Dysphagia Onset Date: 07/21/2014 Status: Chronic Assessment & Plan: She has had a dilatation for a stricture, but still having some problems. She is followed by Dr. Mccarthy. (6) Diabetes mellitus type 2, uncontrolled Status: Chronic Assessment & Plan: She is chronically on metformin and Amaryl. (7) History of thyroidectomy Status: Chronic Assessment & Plan: Continue levothyroxine. (8) Hypomagnesemia Status: Acute Assessment & Plan: Her magnesium is 1.4 today. Magnesium was ordered IV, but the patient has refused to get another IV for infusion. She cannot receive oral magnesium secondary to the diarrhea. Exam Sepsis Risk: Sepsis Risk Problem Qualifiers (1) Urinary tract infection: Urinary tract infection type: acute cystitis Hematuria presence: without hematuria Qualified Codes: N30.00 - Acute cystitis without hematuria (2) Falls: Encounter type: initial encounter Qualified Codes: W19.XXXA - Unspecified fall, initial encounter RANI HENNING [employer] QU[employer] INSTRUMENT SPECIALIST May 28, 2017 13:14
[2017-05-28] MEDS: DIPHENOX/ATROPINE 2.5-0.025MG PO PRN (18:18)
[2017-05-28] MEDS: ALPRAZolam 1 MG TAB PO PRN (20:15)
[2017-05-28] MEDS: lamoTRIgine 100 MG TAB PO SCH (20:15)
[2017-05-28] MEDS: CEPHALEXIN MONO 500 MG CAP PO SCH (20:15)
[2017-05-28] MEDS: MELATONIN 3 MG TAB PO SCH (20:15)
[2017-05-29 03:43] VITALS: BP 137/72
[2017-05-29] MEDS: LEVOTHYROXINE SOD 0.112 MG TAB PO SCH (05:35)
[2017-05-29] MEDS: KCL/NS* 20 MEQ/1000 ML PREMIX 1,000 ML IV SCH (06:57)
[2017-05-29 07:25] VITALS: BP 153/85
[2017-05-29] MEDS: ESTROGENS CONJ 0.3 MG TAB PO SCH (08:35)
[2017-05-29] MEDS: ENOXAPARIN 40 MG/0.4ML SYR SC SCH (08:37)
[2017-05-29] MEDS: ASPIRIN 81 MG CHEW PO SCH (08:37)
[2017-05-29] MEDS: metFORMIN HCL 500 MG TAB PO SCH ×2 (08:37→16:39)
[2017-05-29] MEDS: CEPHALEXIN MONO 500 MG CAP PO SCH ×4 (08:59→20:55)
[2017-05-29] MEDS: MECLIZINE HCL 25 MG TAB PO PRN (09:57)
[2017-05-29] MEDS ORDERED: MAGNESIUM SUL* 2 GM/50 ML IVPB 50 ML IVPB ONE (10:10)
--- NOTE | 2017-05-29 10:29 | Hospitalist Progress Note ---
Subjective Progress Notes Subjective Patient states she is starting to feel better. She still c/o dizziness. She worked with physical therapy today for the dizziness. The patient feels this is helping her. The patient has had no further episodes of diarrhea. Patient Complains of: Neurological: Dizziness Cardiovascular: No: Chest Pain Respiratory: No: Shortness of Breath Physical Exam Vital Signs Date Time Temp Pulse Resp B/P (MAP) Pulse Ox O2 Delivery O2 Flow Rate FiO2 05/29/17 07:28 90 Room Air 05/29/17 07:25 99.8 16 153/85 (107) 05/29/17 03:43 85 05/28/17 05:10 1.0 Intake and Output 05/30/17 07:00 Intake Total 0 ml Balance 0 ml Intake Oral 0 ml General Appearance: Alert, Awake, No Acute Distress, Afebrile Cardiovascular: Regular Rate and Rhythm Respiratory: No Respiratory Distress, Clear to Auscultation GI: Soft and Non-Tender Psych: Alert & Oriented X3, Appropriate Mood & Affect Result Diagram: 05/28/17 0827 05/29/17 0539 Assessment and Plan Problems: (1) Urinary tract infection Status: Acute Assessment & Plan: She presented with 4 days of chills and weakness with falls. She is febrile, has an elevated WBC and has many WBC on the UA (she refused a catheter specimen). Her lactate, BP are normal. She was given a dose of Rocephin in the ER which was continued at 2g q24h. Blood cultures are negative and urine culture shows Klebsiella. Rocephin was susceptible to the infection. She was given oral Keflex last night instead of IV antibiotics. (2) Falls Status: Acute Assessment & Plan: She has a h/o of Meniere's but she reports these symptoms of dizziness are different. The Meclizine has seemed to decrease some of the dizziness, however, the patient still has symptoms. Physical therapy is working with patient for Benign Paroxysmal Positional Vertigo with Rea-[place] Maneuvers. (3) Diarrhea Status: Acute Assessment & Plan: She has had diarrhea a few days before she was admitted. The patient denies abdominal pain, nausea or vomiting. She had decreased potassium 05/27/17 to 3.2. She was given a K-Allen and Potassium in normal saline, which increased her Potassium to 4.1 yesterday. Her stool was negative for C-Diff. (4) Bipolar disorder Status: Chronic Assessment & Plan: Continue Lamictal and prn Xanax. (5) Dysphagia Onset Date: 07/21/2014 Status: Chronic Assessment & Plan: She has had a dilatation for a stricture, but still having some problems. She is followed by Dr. Mccarthy. (6) Diabetes mellitus type 2, uncontrolled Status: Chronic Assessment & Plan: She is chronically on metformin and Amaryl. (7) History of thyroidectomy Status: Chronic Assessment & Plan: Continue levothyroxine. (8) Hypomagnesemia Status: Acute Assessment & Plan: Her magnesium is 1.2 today. Magnesium was ordered IV, along with telemetry. The patient agrees for the infusion today. Exam Sepsis Risk: No Definite Risk Problem Qualifiers (1) Urinary tract infection: Urinary tract infection type: acute cystitis Hematuria presence: without hematuria Qualified Codes: N30.00 - Acute cystitis without hematuria (2) Falls: Encounter type: initial encounter Qualified Codes: W19.XXXA - Unspecified fall, initial encounter RANI HENNING May 29, 2017 10:29
[2017-05-29 10:37] LABS: PLATELET COUNT, AUTOMATED 519 K/uL (150-450)
[2017-05-29] MEDS ORDERED: NS(*) 0.9% 500 ML BAG 500 ML ONE (10:47)
[2017-05-29 11:36] VITALS: BP 148/85
[2017-05-29] MEDS: GLIMEPIRIDE 2 MG TAB PO SCH (12:00)
[2017-05-29 15:31] VITALS: BP 126/92
[2017-05-29] MEDS: LOPERAMIDE HCL 2 MG CAP PO PRN ×3 (16:39→21:32)
[2017-05-29 19:54] VITALS: BP 148/91
[2017-05-29] MEDS: ONDANSETRON 4 MG/2 ML VIAL IVP PRN (20:54)
[2017-05-29] MEDS: lamoTRIgine 100 MG TAB PO SCH (20:55)
[2017-05-29] MEDS: ALPRAZolam 1 MG TAB PO PRN (20:55)
[2017-05-29] MEDS: MELATONIN 3 MG TAB PO SCH (20:55)
[2017-05-30] MEDS: KCL/NS* 20 MEQ/1000 ML PREMIX 1,000 ML IV SCH ×2 (02:57→22:57)
[2017-05-30 03:16] VITALS: BP 121/73
[2017-05-30] MEDS: LEVOTHYROXINE SOD 0.112 MG TAB PO SCH (06:04)
[2017-05-30 06:18] LABS: PLATELET COUNT, AUTOMATED 492 K/uL (150-450)
--- NOTE | 2017-05-30 09:15 | Hospitalist Progress Note ---
Subjective Progress Notes Subjective Patient states she is starting to feel better everyday. She had no acute events overnight per staff. Patient Complains of: Cardiovascular: No: Chest Pain Respiratory: No: Shortness of Breath Physical Exam Vital Signs Date Time Temp Pulse Resp B/P (MAP) Pulse Ox O2 Delivery O2 Flow Rate FiO2 05/30/17 03:16 99.0 82 20 121/73 (89) 91 Room Air 05/28/17 05:10 1.0 General Appearance: Alert, Awake, No Acute Distress, Afebrile Cardiovascular: Regular Rate and Rhythm Respiratory: No Respiratory Distress, Clear to Auscultation Psych: Alert & Oriented X3, Appropriate Mood & Affect Result Diagram: 05/30/1752005/30/17520 Assessment and Plan Problems: (1) Urinary tract infection Status: Acute Assessment & Plan: She presented with 4 days of chills and weakness with falls. She is febrile, has an elevated WBC and has many WBC on the UA (she refused a catheter specimen). Her lactate, BP are normal. She was given a dose of Rocephin in the ER which was continued at 2g q24h. Blood cultures are negative and urine culture shows Klebsiella. Rocephin was susceptible to the infection. Antibiotics have stopped secondary to therapy completion. (2) Falls Status: Acute Assessment & Plan: She has a h/o of Meniere's but she reports these symptoms of dizziness are different. The Meclizine has seemed to decrease some of the dizziness, however, the patient still has symptoms. Physical therapy will continue with patient for Benign Paroxysmal Positional Vertigo with Rea-[place] Maneuvers. (3) Diarrhea Status: Acute Assessment & Plan: She has had diarrhea a few days before she was admitted. The patient denies abdominal pain, nausea or vomiting. She had decreased potassium 05/27/17 to 3.2. She was given a K-Allen and Potassium in normal saline, which increased her Potassium to a normal range. Her stool was negative for C-Diff. (4) Bipolar disorder Status: Chronic Assessment & Plan: Continue Lamictal and prn Xanax. (5) Dysphagia Onset Date: 07/21/2014 Status: Chronic Assessment & Plan: She has had a dilatation for a stricture, but still having some problems. She is followed by Dr. Mccarthy. (6) Diabetes mellitus type 2, uncontrolled Status: Chronic Assessment & Plan: She is chronically on metformin and Amaryl. (7) History of thyroidectomy Status: Chronic Assessment & Plan: Continue levothyroxine. (8) Hypomagnesemia Status: Acute Assessment & Plan: Her magnesium is 1.3 today. Magnesium was ordered IV. The patient agrees for the infusion today. Exam Sepsis Risk: No Definite Risk Problem Qualifiers (1) Urinary tract infection: Urinary tract infection type: acute cystitis Hematuria presence: without hematuria Qualified Codes: N30.00 - Acute cystitis without hematuria (2) Falls: Encounter type: initial encounter Qualified Codes: W19.XXXA - Unspecified fall, initial encounter RANI HENNING May 30, 2017 09:15
[2017-05-30] MEDS ORDERED: MAGNESIUM SUL* 4 GM/100 ML BAG 100 ML IVPB ONE (09:30)
[2017-05-30 10:00] VITALS: BP 139/81
[2017-05-30] MEDS: ASPIRIN 81 MG CHEW PO SCH (10:04)
[2017-05-30] MEDS: ESTROGENS CONJ 0.3 MG TAB PO SCH (10:04)
[2017-05-30] MEDS: metFORMIN HCL 500 MG TAB PO SCH ×2 (10:04→18:35)
[2017-05-30] MEDS: ENOXAPARIN 40 MG/0.4ML SYR SC SCH (10:06)
[2017-05-30] MEDS: CEPHALEXIN MONO 500 MG CAP PO SCH ×4 (10:06→21:28)
[2017-05-30] MEDS: ALPRAZolam 1 MG TAB PO PRN ×2 (10:07→21:28)
[2017-05-30] MEDS ORDERED: ONDANSETRON 4 MG ODT TABDP SL ONE ×2 (10:55→23:52)
[2017-05-30] MEDS: GLIMEPIRIDE 2 MG TAB PO SCH (12:00)
[2017-05-30 15:17] VITALS: BP 116/69
[2017-05-30] MEDS: ACETAMINOPHEN 500 MG TAB PO PRN (15:21)
[2017-05-30] MEDS: INSULIN HUM LISPRO 100 UN/ML 3 ML VIAL SUBQ PRN (15:25)
[2017-05-30 20:15] VITALS: BP 117/69
[2017-05-30] MEDS: MELATONIN 3 MG TAB PO SCH (21:28)
[2017-05-30] MEDS: lamoTRIgine 100 MG TAB PO SCH (21:29)
[2017-05-30] MEDS: MECLIZINE HCL 25 MG TAB PO PRN (22:05)
[2017-05-31 00:37] VITALS: BP 126/75
[2017-05-31] MEDS: LEVOTHYROXINE SOD 0.112 MG TAB PO SCH (05:27)
[2017-05-31 08:03] VITALS: BP 117/69
[2017-05-31] MEDS: CEPHALEXIN MONO 500 MG CAP PO SCH ×4 (08:43→21:05)
[2017-05-31] MEDS: ASPIRIN 81 MG CHEW PO SCH (08:43)
[2017-05-31] MEDS: ENOXAPARIN 40 MG/0.4ML SYR SC SCH (08:43)
[2017-05-31] MEDS: ALPRAZolam 1 MG TAB PO PRN ×2 (08:43→19:49)
[2017-05-31] MEDS: metFORMIN HCL 500 MG TAB PO SCH ×2 (08:43→17:04)
[2017-05-31] MEDS: ESTROGENS CONJ 0.3 MG TAB PO SCH (09:41)
[2017-05-31] MEDS: GLIMEPIRIDE 2 MG TAB PO SCH (12:33)
--- NOTE | 2017-05-31 12:42 | RADIOLOGY IMAGING REPORT ---
FACILITY: [facility] PATIENT NAME: Kristen Trinh : 1955 MR: [id number] V: [id number] EXAM DATE: ORDERING PHYSICIAN: RANI HENNING TECHNOLOGIST: [place] [facility] [place]en Trinh : 1955 Visit/Account:[id number] Date of Sevice: 05/31/2017 PICC placement using ultrasound and fluoroscopy guidance HISTORY: Need for long-term central venous access. COMPARISON: Chest x-ray 05/25/2017 PROCEDURE: Informed written consent was obtained. A timeout was performed and the procedure room. The left arm veins were assessed with ultrasound to confirm absence of venous thrombosis. The arm was then prepp ed and draped in a sterile fashion. Lidocaine one percent was used for local anesthesia. Using ultrasound guidance, a micropuncture needle was inserted into the mid arm basilic vein. Image s demonstrating the needle and guidewire within the basilic vein were captured and stored on PACS. A guidewire was advanced through the needle to the SVC-right atrium junction using fluoroscopy guidanc e. The needle was exchanged with a peel-away sheath. The guidewire was removed, and the PICC was cu t to 32 cm length. The 5-Urdu dual lumen power PICC was advanced through the sheath to the atrial caval junction using fluoroscopy guidance. The peel-away sheath was removed. The PICC was secured to the skin and covered using an adhesive ban dage. The patient tolerated the procedure well and there are no complications. IMPRESSION: Successful ultrasound-guided and fluoroscopy-guided PICC placement. The tip of the catheter is at th e atrial-caval junction, and it is ready for use. Fluoroscopy time: 0.4 minute DAP 43.18 uGym2 Report Dictated By: Gerri Watts MD at 05/31/2017 12:32 PM Report E-Signed By: Gerri Watts MD at 05/31/2017 12:37 PM WSN:[email or web address]
--- NOTE | 2017-05-31 12:43 | RADIOLOGY IMAGING REPORT ---
FACILITY: [facility] PATIENT NAME: Kristen Trinh : 1955 MR: [id number] V: [id number] EXAM DATE: ORDERING PHYSICIAN: RANI HENNING TECHNOLOGIST: Location: [facility] [place] Patient: Kristen Trinh : 1955 Visit/Account:[id number] Date of Sevice: 05/31/2017 PICC placement using ultrasound and fluoroscopy guidance HISTORY: Need for long-term central venous access. COMPARISON: Chest x-ray 05/25/2017 PROCEDURE: Informed written consent was obtained. A timeout was performed and the procedure room. The left arm veins were assessed with ultrasound to confirm absence of venous thrombosis. The arm was then prepp ed and draped in a sterile fashion. Lidocaine one percent was used for local anesthesia. Using ultrasound guidance, a micropuncture needle was inserted into the mid arm basilic vein. Image s demonstrating the needle and guidewire within the basilic vein were captured and stored on PACS. A guidewire was advanced through the needle to the SVC-right atrium junction using fluoroscopy guidanc e. The needle was exchanged with a peel-away sheath. The guidewire was removed, and the PICC was cu t to 32 cm length. The 5-Bengali dual lumen power PICC was advanced through the sheath to the atrial caval junction using fluoroscopy guidance. The peel-away sheath was removed. The PICC was secured to the skin and covered using an adhesive ban dage. The patient tolerated the procedure well and there are no complications. IMPRESSION: Successful ultrasound-guided and fluoroscopy-guided PICC placement. The tip of the catheter is at th e atrial-caval junction, and it is ready for use. Fluoroscopy time: 0.4 minute DAP 43.18 uGym2 Report Dictated By: Gerri Watts MD at 05/31/2017 12:32 PM Report E-Signed By: Gerri Watts MD at 05/31/2017 12:37 PM WSN:[email or web address]
[2017-05-31 14:40] VITALS: BP 122/75
--- NOTE | 2017-05-31 14:55 | Hospitalist Progress Note ---
Subjective Progress Notes Subjective No new complaints. Patient lost IV access and needs magnesium infusion. Multiple attempts to place IV unsuccessful. Patient worried about PICC line placement. Physical Exam Vital Signs Date Time Temp Pulse Resp B/P (MAP) Pulse Ox O2 Delivery O2 Flow Rate FiO2 05/31/17 14:40 98.1 78 16 122/75 (91) 96 Nasal Cannula 3.0 Intake and Output 06/01/17 07:00 Intake Total 0 ml Balance 0 ml Intake Oral 0 ml General Appearance: Alert, Awake, No Acute Distress, Afebrile Neuro: No Gross deficits Eyes: PERRLA Cardiovascular: Regular Rate and Rhythm Respiratory: Clear to Auscultation GI: Soft and Non-Tender Extremities: Warm, Perfused Psych: Appropriate Mood & Affect Result Diagram: 05/30/1752005/31/17530 Assessment and Plan Problems: (1) Urinary tract infection Status: Acute Assessment & Plan: She presented with 4 days of chills and weakness with falls. She is febrile, has an elevated WBC and has many WBC on the UA (she refused a catheter specimen). Her lactate, BP are normal. She was given a dose of Rocephin in the ER which was continued at 2g q24h. Blood cultures are negative and urine culture shows Klebsiella. Rocephin was susceptible to the infection. Antibiotics have stopped secondary to therapy completion. (2) Falls Status: Acute Assessment & Plan: She has a h/o of Meniere's but she reports these symptoms of dizziness are different. The Meclizine has seemed to decrease some of the dizziness, however, the patient still has symptoms. Physical therapy will continue with patient for Benign Paroxysmal Positional Vertigo with Rea-[place]urt Maneuvers. (3) Diarrhea Status: Acute Assessment & Plan: She has had diarrhea a few days before she was admitted. The patient denies abdominal pain, nausea or vomiting. She had decreased potassium 05/27/17 to 3.2. She was given a K-Allen and Potassium in normal saline, which increased her Potassium to a normal range. Her stool was negative for C-Diff. (4) Bipolar disorder Status: Chronic Assessment & Plan: Continue Lamictal and prn Xanax. (5) Dysphagia Onset Date: 07/21/2014 Status: Chronic Assessment & Plan: She has had a dilatation for a stricture, but still having some problems. She is followed by Dr. Mccarthy. (6) Diabetes mellitus type 2, uncontrolled Status: Chronic Assessment & Plan: She is chronically on metformin and Amaryl. (7) History of thyroidectomy Status: Chronic Assessment & Plan: Continue levothyroxine. (8) Hypomagnesemia Status: Acute Assessment & Plan: Her magnesium is 1.3 again today. Magnesium has been ordered IV. The patient lost IV access. PICC line ordered. Time Spent on Plan of Care: < 30 min Exam Sepsis Risk: No Definite Risk Problem Qualifiers (1) Urinary tract infection: Urinary tract infection type: acute cystitis Hematuria presence: without hematuria Qualified Codes: N30.00 - Acute cystitis without hematuria (2) Falls: Encounter type: initial encounter Qualified Codes: W19.XXXA - Unspecified fall, initial encounter ANTHONY POST MD May 31, 2017 14:55
[2017-05-31] MEDS ORDERED: MAGNESIUM SUL* 4 GM/100 ML BAG 100 ML IVPB ONE (15:00)
[2017-05-31] MEDS: INSULIN HUM LISPRO 100 UN/ML 3 ML VIAL SUBQ PRN (17:05)
[2017-05-31] MEDS: KCL/NS* 20 MEQ/1000 ML PREMIX 1,000 ML IV SCH (18:57)
[2017-05-31 19:24] VITALS: BP 120/63
[2017-05-31] MEDS: MECLIZINE HCL 25 MG TAB PO PRN (19:49)
[2017-05-31] MEDS: MELATONIN 3 MG TAB PO SCH (21:04)
[2017-05-31] MEDS: lamoTRIgine 100 MG TAB PO SCH (21:05)
[2017-06-01 04:02] VITALS: BP 134/82
[2017-06-01] MEDS: LEVOTHYROXINE SOD 0.112 MG TAB PO SCH (05:40)
[2017-06-01 05:59] LABS: PLATELET COUNT, AUTOMATED 484 K/uL (150-450)
[2017-06-01 07:21] VITALS: BP 127/68
[2017-06-01] MEDS: CEPHALEXIN MONO 500 MG CAP PO SCH ×4 (08:42→20:49)
[2017-06-01] MEDS: ASPIRIN 81 MG CHEW PO SCH (08:42)
[2017-06-01] MEDS: metFORMIN HCL 500 MG TAB PO SCH ×2 (08:42→16:52)
[2017-06-01] MEDS: ENOXAPARIN 40 MG/0.4ML SYR SC SCH (08:42)
[2017-06-01] MEDS: ESTROGENS CONJ 0.3 MG TAB PO SCH (08:42)
[2017-06-01] MEDS: ALPRAZolam 1 MG TAB PO PRN ×2 (08:42→19:46)
--- NOTE | 2017-06-01 10:06 | Hospitalist Progress Note ---
Subjective Progress Notes Subjective No changes today pending disposition. 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 She is febrile, has an elevated WBC and has many WBC on the UA (she refused a catheter specimen). Her lactate, BP are normal. She was given a dose of Rocephin in the ER which was continued at 2g q24h. Blood cultures are negative and urine culture shows Klebsiella. Rocephin was susceptible to the infection. Antibiotics have stopped secondary to therapy completion. (2) Falls Status: Acute Assessment & Plan: She has a h/o of Meniere's but she reports these symptoms of dizziness are different. The Meclizine has seemed to decrease some of the dizziness, however, the patient still has symptoms. Physical therapy will continue with patient for Benign Paroxysmal Positional Vertigo with [employer] [employer]. (3) Diarrhea Status: Acute Assessment & Plan: She has had diarrhea a few days before she was admitted. The patient denies abdominal pain, nausea or vomiting. She had decreased potassium 05/27/17 to 3.2. She was given a K-Allen and Potassium in normal saline, which increased her Potassium to a normal range. Her stool was negative for C-Diff. (4) Bipolar disorder Status: Chronic Assessment & Plan: Continue Lamictal and prn Xanax. (5) Dysphagia Onset Date: 07/21/2014 Status: Chronic Assessment & Plan: She has had a dilatation for a stricture, but still having some problems. She is followed by Dr. Mccarthy. (6) Diabetes mellitus type 2, uncontrolled Status: Chronic Assessment & Plan: She is chronically on metformin and Amaryl. (7) History of thyroidectomy Status: Chronic Assessment & Plan: Continue levothyroxine. (8) Hypomagnesemia Status: Acute Assessment & Plan: Her magnesium is 1.3 again today. Magnesium has been ordered IV. The patient lost IV access. PICC line ordered. Time Spent on Plan of Care: < 30 min Exam Sepsis Risk: No Definite Risk Problem Qualifiers (1) Urinary tract infection: Urinary tract infection type: acute cystitis Hematuria presence: without hematuria Qualified Codes: N30.00 - Acute cystitis without hematuria (2) Falls: Encounter type: initial encounter Qualified Codes: W19.XXXA - Unspecified fall, initial encounter GIOVANA PINEDA MD FACP Jun 01, 2017 10:06
[2017-06-01] MEDS: GLIMEPIRIDE 2 MG TAB PO SCH (11:59)
--- NOTE | 2017-06-01 12:06 | Medical Nutrition Therapy ---
Nutrition Anthropometrics Height (Inches): 61.00 Height (Calculated Centimeters: 154.307382 Weight (Pounds): 150 Weight (Calculated Kilograms): 68.039 BMI Calculated: 28.34 Dung Nutrition Score: Adequate Dung Nutrition Risk Score: 17 Dietary Referral Nutrition Risk Factors: Unplanned Loss >10lbs Nutrition Risk Comment: dx'd with DM2 and more recently goiter and thyroid disease Physical Findings Physical Appearance: Overweight BMI 25-29 Skin Appearance Skin Appearance: Edema Edema Location Modifier: Edema Location: Type of Edema: Degree of Edema: Gastrointestinal Symptoms GI Symtoms: Change in Bowel Pattern Tube Present: Bowel Sounds: Recent Bowel Pattern: Stool Characteristics: Nutrition/Food History No Significant Nutr. HX Nutritional Diagnosis Nutritional Risk Acuity 2: Unintended Wt Loss >5%/mo Nutritional Risk Acuity 3: Fair Appetite, Nausea Past Medical History: dysphagia, bipolar, T2DM Nutritional Acuity: 2-Moderate Nutrition Diagnosis: Involuntary Wt. Loss Nutrition Etiology: Physiological Causes Nutrition Problem/Etiology/Sym: per pt reported unintended wt loss > 10# Energy Requirement: 1550 (M- StJ) Protein Requirement: 68 (1gm/kg) Fluid Requirement: 2040 (30ml/kg) Diet Type: Diabetic Nutrition Intervention: Cont diet as ordered, Encourage intake Food Dislikes: Hates strawberries Nutrition Monitoring & Eval Nutrition Goals: Eat 75-100% Meal RD Patient Assessment Time: [address] Assessment Type: RD Re-Assessment Patient Nutrition Acuity: 2-Moderate Follow Up Date: Jun 05, 2017 Nutritional Comment: 05/25 Pt admitted with frequent fall r/t UTI. Pt has dx of T2DM. BG elevated up to 247. Pt has hx of dyspagia but no diet modifications. Pt on ADA diet. ate 75% of first meal in facility. Pt reporting diarrhea and nausea which may be affecting intake. Pt reporting wt loss. BMI is in overwt class. Will cont to monitor and encourage intake. 05/27 Attempted to discuss wt loss, pt asleept X2 attempts. Pt eating 75% of meals. Will cont to monitor and encourage intake. 06/01 Pt continues with Diabetes diet with most meals consumed at 100%. Diarrhea is resolved. Glu 92. Follow intake, labs, etc. KHOA ZAYAS Jun 01, 2017 12:06
[2017-06-01] MEDS: KCL/NS* 20 MEQ/1000 ML PREMIX 1,000 ML IV SCH (13:49)
[2017-06-01 16:30] VITALS: BP 144/80
[2017-06-01 18:52] VITALS: BP 149/84
[2017-06-01] MEDS: MECLIZINE HCL 25 MG TAB PO PRN (19:46)
[2017-06-01] MEDS: LOPERAMIDE HCL 2 MG CAP PO PRN (19:46)
[2017-06-01] MEDS: MELATONIN 3 MG TAB PO SCH (20:49)
[2017-06-01] MEDS: MAGNESIUM OXIDE 400 MG TAB PO SCH (20:49)
[2017-06-01] MEDS: lamoTRIgine 100 MG TAB PO SCH (20:50)
[2017-06-01 23:29] VITALS: BP 128/66
[2017-06-02 04:03] VITALS: BP 130/67
[2017-06-02] MEDS: LEVOTHYROXINE SOD 0.112 MG TAB PO SCH (05:56)
[2017-06-02 07:45] VITALS: BP 146/80
[2017-06-02] MEDS: ENOXAPARIN 40 MG/0.4ML SYR SC SCH (08:37)
[2017-06-02] MEDS: ALPRAZolam 1 MG TAB PO PRN ×3 (08:37→20:49)
[2017-06-02] MEDS: ASPIRIN 81 MG CHEW PO SCH (08:37)
[2017-06-02] MEDS: CEPHALEXIN MONO 500 MG CAP PO SCH ×4 (08:38→20:50)
[2017-06-02] MEDS: ESTROGENS CONJ 0.3 MG TAB PO SCH (08:38)
[2017-06-02] MEDS: metFORMIN HCL 500 MG TAB PO SCH (08:38)
[2017-06-02] MEDS: MECLIZINE HCL 25 MG TAB PO PRN ×2 (08:38→20:52)
[2017-06-02] MEDS: MAGNESIUM OXIDE 400 MG TAB PO SCH ×2 (08:38→20:49)
[2017-06-02] MEDS ORDERED: MAGNESIUM SUL* 2 GM/50 ML IVPB 50 ML IVPB ONE (10:00)
--- NOTE | 2017-06-02 10:33 | Hospitalist Progress Note ---
Subjective Progress Notes Subjective She reports some loose stools persisting as well as diminished appetite. She has been trying to eat better. Physical Exam Vital Signs Date Time Temp Pulse Resp B/P (MAP) Pulse Ox O2 Delivery O2 Flow Rate FiO2 06/02/17 07:45 98.4 74 20 146/80 (102) 92 Nasal Cannula 1.0 Intake and Output 06/03/17 07:00 Intake Total 0 ml Balance 0 ml Intake Oral 0 ml General Appearance: Alert, Awake Cardiovascular: Regular Rate and Rhythm Respiratory: Clear to Auscultation GI: Soft and Non-Tender (BS present) Extremities: Warm, Perfused Psych: Alert & Oriented X3 Result Diagram: 06/01/17 0528 06/02/17 0559 Assessment and Plan Problems: (1) Urinary tract infection Status: Acute Assessment & Plan: She presented with 4 days of chills and weakness with falls. She was febrile, had an elevated WBC and many WBC on the UA (she refused a catheter specimen). Her lactate, BP are normal. She was given a dose of Rocephin in the ER which was continued at 2gm IV q24h. Blood cultures are negative and urine culture shows Klebsiella sensitive to Rocephin. She is now on Keflex to complete therapy. (2) Falls Status: Acute Assessment & Plan: She has a h/o of Meniere's but she reports these symptoms of dizziness are different. The Meclizine has seemed to decrease some of the dizziness, however, the patient still has symptoms. Physical therapy will continue with patient for Benign Paroxysmal Positional Vertigo. (3) Diarrhea Status: Acute Assessment & Plan: Her stool culture was negative as well as for C-Difficile. It may be her metformin for her type 2 DM. Will now stop the metformin and continue with glimepiride. (4) Bipolar disorder Status: Chronic Assessment & Plan: Continue Lamictal and prn Xanax. (5) Dysphagia Onset Date: 07/21/2014 Status: Chronic Assessment & Plan: She has had a dilatation for a stricture, but still having some problems. She is followed by Dr. Mccarthy. (6) Diabetes mellitus type 2, uncontrolled Status: Chronic Assessment & Plan: She has been chronically on metformin and Amaryl. We will now stop the metformin due to the GI symptoms. Continue with the Amaryl. (7) History of thyroidectomy Status: Chronic Assessment & Plan: Continue levothyroxine. (8) Hypomagnesemia Status: Acute Assessment & Plan: Her magnesium is still slightly low again today. Will give Magnesium 2gm IV. We have also started magnesium oxide oral replacement. Watch lab. Exam Sepsis Risk: No Definite Risk Problem Qualifiers (1) Urinary tract infection: Urinary tract infection type: acute cystitis Hematuria presence: without hematuria Qualified Codes: N30.00 - Acute cystitis without hematuria (2) Falls: Encounter type: initial encounter Qualified Codes: W19.XXXA - Unspecified fall, initial encounter DILSHAD POST MD Jun 02, 2017 10:33
[2017-06-02] MEDS: NS(*) 0.9% 250 ML BAG 250 ML IV PRN (10:50)
[2017-06-02] MEDS: KCL/NS* 20 MEQ/1000 ML PREMIX 1,000 ML IV SCH (10:57)
[2017-06-02] MEDS: GLIMEPIRIDE 2 MG TAB PO SCH (12:12)
[2017-06-02] MEDS: LOPERAMIDE HCL 2 MG CAP PO PRN (15:36)
[2017-06-02 15:37] VITALS: BP 126/69
[2017-06-02 19:59] VITALS: BP 159/78
[2017-06-02] MEDS: lamoTRIgine 100 MG TAB PO SCH (20:49)
[2017-06-02] MEDS: MELATONIN 3 MG TAB PO SCH (20:51)
[2017-06-02 23:28] VITALS: BP 122/68
[2017-06-03 03:44] VITALS: BP 114/66
[2017-06-03] MEDS: LEVOTHYROXINE SOD 0.112 MG TAB PO SCH (05:32)
[2017-06-03 05:49] LABS: PLATELET COUNT, AUTOMATED 446 K/uL (150-450)
[2017-06-03] MEDS: KCL/NS* 20 MEQ/1000 ML PREMIX 1,000 ML IV SCH (06:57)
[2017-06-03] MEDS: MAGNESIUM OXIDE 400 MG TAB PO SCH ×2 (09:09→21:33)
[2017-06-03] MEDS: ENOXAPARIN 40 MG/0.4ML SYR SC SCH (09:09)
[2017-06-03] MEDS: ASPIRIN 81 MG CHEW PO SCH (09:09)
[2017-06-03] MEDS: ESTROGENS CONJ 0.3 MG TAB PO SCH (09:09)
--- NOTE | 2017-06-03 09:25 | Hospitalist Progress Note ---
Subjective Progress Notes Subjective Patient has no complaints this morning. Patient Complains of: Cardiovascular: No: Chest Pain Respiratory: No: Shortness of Breath Physical Exam Vital Signs Date Time Temp Pulse Resp B/P (MAP) Pulse Ox O2 Delivery O2 Flow Rate FiO2 06/03/17 03:44 98.7 77 14 114/66 (82) 92 Nasal Cannula 1.0 General Appearance: Alert, Awake, No Acute Distress, Afebrile Cardiovascular: Regular Rate and Rhythm Respiratory: No Respiratory Distress, Clear to Auscultation GI: Soft and Non-Tender Extremities: Soft and Non Tender, No Edema Psych: Alert & Oriented X3, Appropriate Mood & Affect Result Diagram: 06/03/1751906/03/17519 Assessment and Plan Problems: (1) Urinary tract infection Status: Acute Assessment & Plan: She presented with 4 days of chills and weakness with falls. She was febrile, had an elevated WBC and many WBC on the UA (she refused a catheter specimen). Her lactate, BP are normal. She was given a dose of Rocephin in the ER which was continued at 2gm IV q24h. Blood cultures are negative and urine culture shows Klebsiella sensitive to Rocephin. She also was on Keflex to complete therapy. (2) Falls Status: Acute Assessment & Plan: She has a h/o of Meniere's but she reports these symptoms of dizziness are different. The Meclizine has seemed to decrease some of the dizziness, however, the patient still has symptoms. Physical therapy will continue to work with patient for Benign Paroxysmal Positional Vertigo. (3) Diarrhea Status: Acute Assessment & Plan: Her stool culture was negative as well as for C-Difficile. It may be her metformin for her type 2 DM. Will now stop the metformin and continue with glimepiride. (4) Bipolar disorder Status: Chronic Assessment & Plan: Continue Lamictal and prn Xanax. (5) Dysphagia Onset Date: 07/21/2014 Status: Chronic Assessment & Plan: She has had a dilatation for a stricture, but still having some problems. She is followed by Dr. Mccarthy. (6) Diabetes mellitus type 2, uncontrolled Status: Chronic Assessment & Plan: She has been chronically on metformin and Amaryl. We will now stop the metformin due to the GI symptoms. Continue with the Amaryl. (7) History of thyroidectomy Status: Chronic Assessment & Plan: Continue levothyroxine. (8) Hypomagnesemia Status: Acute Assessment & Plan: Her magnesium is now within normal limits at 1.7. She will continue magnesium oxide oral replacement. We will continue to monitor labs. Exam Sepsis Risk: No Definite Risk Problem Qualifiers (1) Urinary tract infection: Urinary tract infection type: acute cystitis Hematuria presence: without hematuria Qualified Codes: N30.00 - Acute cystitis without hematuria (2) Falls: Encounter type: initial encounter Qualified Codes: W19.XXXA - Unspecified fall, initial encounter RANI HENNING Jun 03, 2017 09:25
[2017-06-03] MEDS: GLIMEPIRIDE 2 MG TAB PO SCH (12:06)
[2017-06-03] MEDS: INSULIN HUM LISPRO 100 UN/ML 3 ML VIAL SUBQ PRN (12:06)
[2017-06-03 12:09] VITALS: BP 148/78
[2017-06-03] MEDS: ACETAMINOPHEN 500 MG TAB PO PRN ×2 (14:19→23:18)
[2017-06-03 18:58] VITALS: BP 134/82
[2017-06-03] MEDS: lamoTRIgine 100 MG TAB PO SCH (21:33)
[2017-06-03] MEDS: MELATONIN 3 MG TAB PO SCH (21:33)
[2017-06-03] MEDS: MICONAZOLE NITRATE 2% PV SCH (21:34)
[2017-06-03] MEDS: ALPRAZolam 1 MG TAB PO PRN (22:50)
[2017-06-03 23:44] VITALS: BP 139/69
[2017-06-04] MEDS: KCL/NS* 20 MEQ/1000 ML PREMIX 1,000 ML IV SCH ×2 (02:57→22:57)
[2017-06-04 04:19] VITALS: BP 126/76
[2017-06-04] MEDS: LEVOTHYROXINE SOD 0.112 MG TAB PO SCH (06:20)
[2017-06-04 07:25] VITALS: BP 120/70
[2017-06-04] MEDS ORDERED: WATER STERILE 10 ML VIAL IVP ONE (09:00)
[2017-06-04] MEDS ORDERED: ALTEPLASE RECOMB 2 MG VIAL IVP ONE (09:00)
[2017-06-04] MEDS: ASPIRIN 81 MG CHEW PO SCH (09:01)
[2017-06-04] MEDS: MAGNESIUM OXIDE 400 MG TAB PO SCH ×2 (09:02→21:31)
[2017-06-04] MEDS: ESTROGENS CONJ 0.3 MG TAB PO SCH (09:02)
[2017-06-04] MEDS: ENOXAPARIN 40 MG/0.4ML SYR SC SCH (09:03)
--- NOTE | 2017-06-04 09:30 | Hospitalist Progress Note ---
Subjective Progress Notes Subjective She has no complaints today. She has continued to work with physical therapy. Patient Complains of: Cardiovascular: No: Chest Pain Respiratory: No: Shortness of Breath Physical Exam Vital Signs Date Time Temp Pulse Resp B/P (MAP) Pulse Ox O2 Delivery O2 Flow Rate FiO2 06/04/17 07:25 98.5 75 15 120/70 (87) 91 Room Air 06/03/17 12:09 1.0 Intake and Output 06/05/17 07:00 Intake Total 0 ml Balance 0 ml Intake Oral 0 ml General Appearance: Alert, Awake, No Acute Distress, Afebrile Cardiovascular: Regular Rate and Rhythm Respiratory: No Respiratory Distress, Clear to Auscultation Psych: Alert & Oriented X3, Appropriate Mood & Affect Result Diagram: 06/03/1751906/03/17519 Assessment and Plan Problems: (1) Urinary tract infection Status: Acute Assessment & Plan: She presented with 4 days of chills and weakness with falls. She was febrile, had an elevated WBC and many WBC on the UA (she refused a catheter specimen). Her lactate, BP are normal. She was given a dose of Rocephin in the ER which was continued at 2gm IV q24h. Blood cultures are negative and urine culture shows Klebsiella sensitive to Rocephin. She also was on Keflex to complete therapy. (2) Falls Status: Acute Assessment & Plan: She has a h/o of Meniere's but she reports these symptoms of dizziness are different. The Meclizine has seemed to decrease some of the dizziness, however, the patient still has symptoms. Physical therapy will continue to work with patient for Benign Paroxysmal Positional Vertigo. (3) Diarrhea Status: Acute Assessment & Plan: Her stool culture was negative as well as for C-Difficile. It may be her metformin for her type 2 DM. Will now stop the metformin and continue with glimepiride. (4) Bipolar disorder Status: Chronic Assessment & Plan: Continue Lamictal and prn Xanax. (5) Dysphagia Onset Date: 07/21/2014 Status: Chronic Assessment & Plan: She has had a dilatation for a stricture, but still having some problems. She is followed by Dr. Mccarthy. (6) Diabetes mellitus type 2, uncontrolled Status: Chronic Assessment & Plan: She has been chronically on metformin and Amaryl. We will now stop the metformin due to the GI symptoms. Continue with the Amaryl. (7) History of thyroidectomy Status: Chronic Assessment & Plan: Continue levothyroxine. (8) Hypomagnesemia Status: Acute Assessment & Plan: Her magnesium is now within normal limits at 1.7. She will continue magnesium oxide oral replacement. We will continue to monitor labs. Exam Sepsis Risk: No Definite Risk Problem Qualifiers (1) Urinary tract infection: Urinary tract infection type: acute cystitis Hematuria presence: without hematuria Qualified Codes: N30.00 - Acute cystitis without hematuria (2) Falls: Encounter type: initial encounter Qualified Codes: W19.XXXA - Unspecified fall, initial encounter RANI HENNING Jun 04, 2017 09:30
[2017-06-04] MEDS: MECLIZINE HCL 25 MG TAB PO PRN ×2 (10:26→21:47)
[2017-06-04 11:05] VITALS: BP 125/75
[2017-06-04] MEDS: GLIMEPIRIDE 2 MG TAB PO SCH (12:32)
[2017-06-04] MEDS: ACETAMINOPHEN 500 MG TAB PO PRN ×2 (15:03→23:18)
[2017-06-04 20:17] VITALS: BP_SYST 125; BP_SYST 151; BP_DIAS 75; BP_DIAS 87
[2017-06-04] MEDS: MELATONIN 3 MG TAB PO SCH (21:31)
[2017-06-04] MEDS: lamoTRIgine 100 MG TAB PO SCH (21:32)
[2017-06-04] MEDS: ALPRAZolam 1 MG TAB PO PRN (21:32)
[2017-06-04] MEDS: MICONAZOLE NITRATE 2% PV SCH (21:33)
[2017-06-04] MEDS: INSULIN HUM LISPRO 100 UN/ML 3 ML VIAL SUBQ PRN (21:43)
[2017-06-04 23:13] VITALS: BP 143/75
[2017-06-05 05:25] VITALS: BP 105/48
[2017-06-05] MEDS: LEVOTHYROXINE SOD 0.112 MG TAB PO SCH (05:27)
[2017-06-05] MEDS ORDERED: MICONAZOLE NITRATE 2% PV PRN (09:00)
[2017-06-05 09:44] VITALS: BP 124/78
[2017-06-05] MEDS: ENOXAPARIN 40 MG/0.4ML SYR SC SCH (09:55)
[2017-06-05] MEDS: metFORMIN HCL 500 MG TAB PO SCH ×2 (09:55→17:35)
[2017-06-05] MEDS: ESTROGENS CONJ 0.3 MG TAB PO SCH (09:56)
[2017-06-05] MEDS: ASPIRIN 81 MG CHEW PO SCH (09:56)
[2017-06-05] MEDS: MAGNESIUM OXIDE 400 MG TAB PO SCH ×2 (09:56→21:04)
--- NOTE | 2017-06-05 10:02 | Hospitalist Progress Note ---
Subjective Progress Notes Subjective She has no complaints this morning. Patient Complains of: Cardiovascular: No: Chest Pain Respiratory: No: Shortness of Breath Physical Exam Vital Signs Date Time Temp Pulse Resp B/P (MAP) Pulse Ox O2 Delivery O2 Flow Rate FiO2 06/05/17 09:44 98.2 69 16 124/78 (93) 91 Room Air 06/05/17 05:25 1.0 Intake and Output 06/06/17 07:00 Intake Total 0 ml Balance 0 ml Intake Oral 0 ml General Appearance: Alert, Awake, No Acute Distress, Afebrile Cardiovascular: Regular Rate and Rhythm Respiratory: No Respiratory Distress, Clear to Auscultation Psych: Alert & Oriented X3, Appropriate Mood & Affect Result Diagram: 06/03/1751906/03/17519 Assessment and Plan Problems: (1) Urinary tract infection Status: Acute Assessment & Plan: She presented with 4 days of chills and weakness with falls. She was febrile, had an elevated WBC and many WBC on the UA (she refused a catheter specimen). Her lactate, BP are normal. She was given a dose of Rocephin in the ER which was continued at 2gm IV q24h. Blood cultures are negative and urine culture shows Klebsiella sensitive to Rocephin. She also was on Keflex to complete therapy. A urinalysis was rechecked yesterday because the patient had complaints of urinary frequency. Urinalysis was negative for infection. She does have vaginal itching, she will continue Monistat. (2) Falls Status: Acute Assessment & Plan: She has a h/o of Meniere's but she reports these symptoms of dizziness are different. The Meclizine has seemed to decrease some of the dizziness, however, the patient still has symptoms. Physical therapy will continue to work with patient for Benign Paroxysmal Positional Vertigo. (3) Diarrhea Status: Acute Assessment & Plan: Her stool culture was negative as well as for C-Difficile. Her stools are now formed. She would like to try her metformin again, so she does not have to receive insulin shots. I have restarted her metformin today. (4) Bipolar disorder Status: Chronic Assessment & Plan: Continue Lamictal and prn Xanax. (5) Dysphagia Onset Date: 07/21/2014 Status: Chronic Assessment & Plan: She has had a dilatation for a stricture, but still having some problems. She is followed by Dr. Mccarthy. (6) Diabetes mellitus type 2, uncontrolled Status: Chronic Assessment & Plan: She has been chronically on metformin and Amaryl. (7) History of thyroidectomy Status: Chronic Assessment & Plan: Continue levothyroxine. (8) Hypomagnesemia Status: Acute Assessment & Plan: Her magnesium is now within normal limits at 1.7. She will continue magnesium oxide oral replacement. We will continue to monitor labs. Exam Sepsis Risk: No Definite Risk Problem Qualifiers (1) Urinary tract infection: Urinary tract infection type: acute cystitis Hematuria presence: without hematuria Qualified Codes: N30.00 - Acute cystitis without hematuria (2) Falls: Encounter type: initial encounter Qualified Codes: W19.XXXA - Unspecified fall, initial encounter RANI HENNING Jun 05, 2017 10:02
[2017-06-05] MEDS: MECLIZINE HCL 25 MG TAB PO PRN ×2 (12:00→21:04)
[2017-06-05] MEDS: GLIMEPIRIDE 2 MG TAB PO SCH (12:33)
[2017-06-05] MEDS: ALPRAZolam 1 MG TAB PO PRN ×2 (13:38→21:04)
--- NOTE | 2017-06-05 14:10 | Medical Nutrition Therapy ---
Nutrition Anthropometrics Height (Inches): 61.00 Height (Calculated Centimeters: 154.339051 Weight (Pounds): 150 Weight (Calculated Kilograms): 68.039 BMI Calculated: 28.34 Dung Nutrition Score: Adequate Dung Nutrition Risk Score: 20 Dietary Referral Nutrition Risk Factors: Unplanned Loss >10lbs Nutrition Risk Comment: dx'd with DM2 and more recently goiter and thyroid disease Physical Findings Physical Appearance: Overweight BMI 25-29 Skin Appearance Skin Appearance: Edema Edema Location Modifier: Edema Location: Type of Edema: Degree of Edema: Gastrointestinal Symptoms GI Symtoms: Appetite Changes Tube Present: Bowel Sounds: Recent Bowel Pattern: Stool Characteristics: Nutritional Diagnosis Nutritional Risk Acuity 2: Unintended Wt Loss >5%/mo Nutritional Risk Acuity 3: Fair Appetite, Nausea Past Medical History: dysphagia, bipolar, T2DM Nutritional Acuity: 2-Moderate Nutrition Diagnosis: Involuntary Wt. Loss Nutrition Etiology: Physiological Causes Nutrition Problem/Etiology/Sym: per pt reported unintended wt loss > 10# Energy Requirement: 1550 (M- StJ) Protein Requirement: 68 (1gm/kg) Fluid Requirement: 2040 (30ml/kg) Diet Type: Diabetic Nutrition Intervention: Cont diet as ordered, Encourage intake Food Dislikes: Hates strawberries Nutritional Education Nutrition Education Topic: Diabetic Nutrition Learning Readiness: Interested Teaching Methods: Discussion, Handout Response to Teaching: Verbalize understanding, Reinforcement needed Teaching Recipient: Patient Nutrition Counseling: Reviewed carb counting and exchange meal plan. Recommend pt keep carbs beteen 45-60/meal. Provided handout with meal pattern. Recommend pt f/u with [facility] for further education Nutrition Monitoring & Eval Nutrition Goals: Eat 75-100% Meal Nutrition Follow-Up: Good Intake RD Patient Assessment Time: [address] Assessment Type: RD Education Patient Nutrition Acuity: 2-Moderate Follow Up Date: Jun 10, 2017 Nutritional Comment: 05/25 Pt admitted with frequent fall r/t UTI. Pt has dx of T2DM. BG elevated up to 247. Pt has hx of dyspagia but no diet modifications. Pt on ADA diet. ate 75% of first meal in facility. Pt reporting diarrhea and nausea which may be affecting intake. Pt reporting wt loss. BMI is in overwt class. Will cont to monitor and encourage intake. 05/27 Attempted to discuss wt loss, pt asleept X2 attempts. Pt eating 75% of meals. Will cont to monitor and encourage intake. 06/01 Pt continues with Diabetes diet with most meals consumed at 100%. Diarrhea is resolved. Glu 92. Follow intake, labs, etc. 06/05 Pt cont CHO controlled diet. Eating 75- 100% of most foods. BG usually below 160's. Pt reported ate raisen bran snack from nurse last night. AM BG was 247. Reviewed diabetic diet with pt. Will cont to monitor and encourage intake. SHAYE VERA Jun 05, 2017 14:10
[2017-06-05 17:25] VITALS: BP 125/92
[2017-06-05 19:41] VITALS: BP 142/91
[2017-06-05] MEDS: lamoTRIgine 100 MG TAB PO SCH (21:04)
[2017-06-05] MEDS: MELATONIN 3 MG TAB PO SCH (21:04)
[2017-06-05] MEDS: ACETAMINOPHEN 500 MG TAB PO PRN (21:04)
[2017-06-06 05:46] LABS: PLATELET COUNT, AUTOMATED 424 K/uL (150-450)
[2017-06-06] MEDS: LEVOTHYROXINE SOD 0.112 MG TAB PO SCH (06:28)
[2017-06-06 07:16] VITALS: BP 118/73
[2017-06-06] MEDS ORDERED: FLUCONAZOLE 150 MG TAB PO ONE (08:15)
[2017-06-06] MEDS: ESTROGENS CONJ 0.3 MG TAB PO SCH (08:53)
[2017-06-06] MEDS: metFORMIN HCL 500 MG TAB PO SCH ×2 (08:53→17:21)
[2017-06-06] MEDS: ENOXAPARIN 40 MG/0.4ML SYR SC SCH (08:54)
[2017-06-06] MEDS: MAGNESIUM OXIDE 400 MG TAB PO SCH ×2 (08:54→20:36)
[2017-06-06] MEDS: ASPIRIN 81 MG CHEW PO SCH (08:54)
--- NOTE | 2017-06-06 09:52 | Hospitalist Progress Note ---
Subjective Progress Notes Subjective She has complaints of vaginal itching this morning. She feels the Monistat treatment alone is not working. Patient Complains of: Cardiovascular: No: Chest Pain Respiratory: No: Shortness of Breath Physical Exam Vital Signs Date Time Temp Pulse Resp B/P (MAP) Pulse Ox O2 Delivery O2 Flow Rate FiO2 06/06/17 07:16 98.0 74 16 118/73 (88) 89 Room Air 06/05/17 05:25 1.0 Intake and Output 06/07/17 07:00 Intake Total 0 ml Balance 0 ml Intake Oral 0 ml General Appearance: Alert, Awake, No Acute Distress, Afebrile Cardiovascular: Regular Rate and Rhythm Respiratory: No Respiratory Distress, Clear to Auscultation Psych: Alert & Oriented X3, Appropriate Mood & Affect Result Diagram: 06/06/1751206/06/17512 Assessment and Plan Problems: (1) Urinary tract infection Status: Acute Assessment & Plan: She presented with 4 days of chills and weakness with falls. She was febrile, had an elevated WBC and many WBC on the UA (she refused a catheter specimen). Her lactate, BP are normal. She was given a dose of Rocephin in the ER which was continued at 2gm IV q24h. Blood cultures are negative and urine culture shows Klebsiella sensitive to Rocephin. She also was on Keflex to complete therapy. A urinalysis was rechecked 06/04 because the patient had complaints of urinary frequency. Urinalysis was negative for infection. She does have vaginal itching, she will continue Monistat and take Diflucan today. (2) Falls Status: Acute Assessment & Plan: She has a h/o of Meniere's but she reports these symptoms of dizziness are different. The Meclizine has seemed to decrease some of the dizziness, however, the patient still has symptoms. Physical therapy will continue to work with patient for Benign Paroxysmal Positional Vertigo. (3) Diarrhea Status: Acute Assessment & Plan: Her stool culture was negative as well as for C-Difficile. Her stools are now formed. (4) Bipolar disorder Status: Chronic Assessment & Plan: Continue Lamictal and prn Xanax. (5) Dysphagia Onset Date: 07/21/2014 Status: Chronic Assessment & Plan: She has had a dilatation for a stricture, but still having some problems. She is followed by Dr. Mccarthy. (6) Diabetes mellitus type 2, uncontrolled Status: Chronic Assessment & Plan: She has been chronically on metformin and Amaryl. (7) History of thyroidectomy Status: Chronic Assessment & Plan: Continue levothyroxine. (8) Hypomagnesemia Status: Acute Assessment & Plan: Her magnesium is at 1.7. She will continue magnesium oxide oral replacement. We will continue to monitor labs. Exam Sepsis Risk: No Definite Risk Problem Qualifiers (1) Urinary tract infection: Urinary tract infection type: acute cystitis Hematuria presence: without hematuria Qualified Codes: N30.00 - Acute cystitis without hematuria (2) Falls: Encounter type: initial encounter Qualified Codes: W19.XXXA - Unspecified fall, initial encounter RANI HENNING Jun 06, 2017 09:52
[2017-06-06 11:15] VITALS: BP 140/93
[2017-06-06] MEDS: GLIMEPIRIDE 2 MG TAB PO SCH (12:24)
[2017-06-06] MEDS: ALPRAZolam 1 MG TAB PO PRN ×2 (12:24→20:43)
[2017-06-06 15:03] VITALS: BP 125/70
[2017-06-06 19:15] VITALS: BP 134/66
[2017-06-06] MEDS: MELATONIN 3 MG TAB PO SCH (20:36)
[2017-06-06] MEDS: lamoTRIgine 100 MG TAB PO SCH (20:36)
[2017-06-07 06:06] VITALS: BP 101/59
[2017-06-07] MEDS: LEVOTHYROXINE SOD 0.112 MG TAB PO SCH (06:10)
[2017-06-07 07:58] VITALS: BP 124/75
[2017-06-07] MEDS: ESTROGENS CONJ 0.3 MG TAB PO SCH (08:22)
[2017-06-07] MEDS: ASPIRIN 81 MG CHEW PO SCH (08:22)
[2017-06-07] MEDS: ENOXAPARIN 40 MG/0.4ML SYR SC SCH (08:22)
[2017-06-07] MEDS: MAGNESIUM OXIDE 400 MG TAB PO SCH ×2 (08:22→20:11)
[2017-06-07] MEDS: metFORMIN HCL 500 MG TAB PO SCH ×2 (08:22→17:11)
[2017-06-07] MEDS: GLIMEPIRIDE 2 MG TAB PO SCH (12:09)
--- NOTE | 2017-06-07 13:40 | Hospitalist Progress Note ---
Subjective Progress Notes Subjective 06/07: Mrs. Trinh is a 61yo female with PMH of Bipolar disorder, DM-II, GERD, Meniere' s Disease who presented to the ER for falls and inability to ambulate. She was in her normal state of health until 4 days ago. She developed chills, thirst, and dizziness with attempting to walk. It was different dizziness from her Meniere's disease. She denies the sensation of the room spinning or tunnel vision. She would try to get up and then would fall down. She would have to lay on the ground for awhile and then would be able to get up and walk. She denies LOC, but hit her head and body on numerous things throughout her house. It continued, such that she started crawling around her house. The chills have persisted. She denies cp/sob/dysuria/abdominal pain/cough/nausea/vomiting/ diarrhea. during the hospital course she was treated for Klebsiella pneumonia UTI with IV Rocephin and she did well. She is still c/o vertigo and uses walker. She is awaiting placement after state evaluation. Patient Complains of: Neurological: Dizziness, No: Confusion, Weakness Cardiovascular: No: Chest Pain, Palpitations Respiratory: No: Cough, Congestion, Shortness of Breath Gastrointestinal: No Nausea, No Vomiting, No Flatus Genitourinary: No Dysuria, No Hematuria Musculoskeletal: No: Pain, Sprain, Strain Physical Exam Vital Signs Date Time Temp Pulse Resp B/P (MAP) Pulse Ox O2 Delivery O2 Flow Rate FiO2 06/07/17 08:03 93 06/07/17 08:03 Room Air 06/07/17 07:58 98.5 77 20 124/75 (91) 06/05/17 05:25 1.0 Intake and Output 06/08/17 07:00 Intake Total 0 ml Balance 0 ml Intake Oral 0 ml # Voids 1 General Appearance: Alert, Awake, No Acute Distress, Afebrile Neuro: No Gross deficits Eyes: PERRLA Cardiovascular: Normal Rhythm & Peripheral Pulses Respiratory: No Respiratory Distress GI: Soft and Non-Tender Extremities: Soft and Non Tender Psych: Alert & Oriented X3 Result Diagram: 06/06/17 0506/06/17512 Assessment and Plan Problems: (1) Urinary tract infection Status: Acute Assessment & Plan: She presented with 4 days of chills and weakness with falls. She was febrile, had an elevated WBC and many WBC on the UA (she refused a catheter specimen). Her lactate, BP are normal. She was given a dose of Rocephin in the ER which was continued at 2gm IV q24h. Blood cultures are negative and urine culture shows Klebsiella sensitive to Rocephin. She also was on Keflex to complete therapy. A urinalysis was rechecked 06/04 because the patient had complaints of urinary frequency. Urinalysis was negative for infection. She does have vaginal itching, she will continue Monistat and take Diflucan today. 06/07: Her UTI has resoled and she has mild vaginal candidiasis and she is receiving Monistat. She is awaiting placement after state evaluation, she is medically cleared to go home. (2) Falls Status: Chronic Assessment & Plan: She has a h/o of Meniere's but she reports these symptoms of dizziness are different. The Meclizine has seemed to decrease some of the dizziness, however, the patient still has symptoms. Physical therapy will continue to work with patient for Benign Paroxysmal Positional Vertigo. 06/07: She has chronic vertigo due to her underlying Miniere's disease and I have advised her to take Meclizine every morning. (3) Diarrhea Status: Resolved Assessment & Plan: Her stool culture was negative as well as for C-Difficile. Her stools are now formed. (4) Bipolar disorder Status: Chronic Assessment & Plan: Continue Lamictal and prn Xanax. (5) Dysphagia Onset Date: 07/21/2014 Status: Chronic Assessment & Plan: She has had a dilatation for a stricture, but still having some problems. She is followed by Dr. Mccarthy. (6) Diabetes mellitus type 2, uncontrolled Status: Chronic Assessment & Plan: She has been chronically on metformin and Amaryl. (7) History of thyroidectomy Status: Chronic Assessment & Plan: Continue levothyroxine. (8) Hypomagnesemia Status: Acute Assessment & Plan: Her magnesium is at 1.7. She will continue magnesium oxide oral replacement. We will continue to monitor labs. 06/07: I will get Mag level in am Condition stable Time Spent on Plan of Care: < 30 min Copies to: EILEEN HERNANDEZ PA-C Exam Sepsis Risk: No Definite Risk Problem Qualifiers (1) Urinary tract infection: Urinary tract infection type: acute cystitis Hematuria presence: without hematuria Qualified Codes: N30.00 - Acute cystitis without hematuria (2) Falls: Encounter type: initial encounter Qualified Codes: W19.XXXA - Unspecified fall, initial encounter JAYESH AREVALO MD Jun 07, 2017 13:40
[2017-06-07] MEDS: ACETAMINOPHEN 500 MG TAB PO PRN (14:00)
[2017-06-07] MEDS: LOPERAMIDE HCL 2 MG CAP PO PRN (14:02)
[2017-06-07 15:46] VITALS: BP 132/76
[2017-06-07 19:24] VITALS: BP 120/77
[2017-06-07] MEDS: MELATONIN 3 MG TAB PO SCH (20:11)
[2017-06-07] MEDS: lamoTRIgine 100 MG TAB PO SCH (20:11)
[2017-06-07] MEDS: ALPRAZolam 1 MG TAB PO PRN (20:14)
[2017-06-08 05:08] VITALS: BP 105/69
[2017-06-08] MEDS: LEVOTHYROXINE SOD 0.112 MG TAB PO SCH (06:12)
[2017-06-08 07:25] VITALS: BP 116/66
[2017-06-08] MEDS: ASPIRIN 81 MG CHEW PO SCH (08:56)
[2017-06-08] MEDS: ENOXAPARIN 40 MG/0.4ML SYR SC SCH (08:56)
[2017-06-08] MEDS: metFORMIN HCL 500 MG TAB PO SCH ×2 (08:57→17:19)
[2017-06-08] MEDS: MECLIZINE HCL 25 MG TAB PO SCH (08:57)
[2017-06-08] MEDS: ESTROGENS CONJ 0.3 MG TAB PO SCH (08:57)
[2017-06-08] MEDS: MAGNESIUM OXIDE 400 MG TAB PO SCH ×2 (08:57→21:05)
--- NOTE | 2017-06-08 10:33 | Hospitalist Progress Note ---
Subjective Progress Notes Subjective Mrs. Trinh is a 61yo female with PMH of Bipolar disorder, DM-II, GERD, Meniere' s Disease who presented to the ER for falls and inability to ambulate. She was in her normal state of health until 4 days ago. She developed chills, thirst, and dizziness with attempting to walk. It was different dizziness from her Meniere's disease. She denies the sensation of the room spinning or tunnel vision. She would try to get up and then would fall down. She would have to lay on the ground for awhile and then would be able to get up and walk. She denies LOC, but hit her head and body on numerous things throughout her house. It continued, such that she started crawling around her house. The chills have persisted. She denies cp/sob/dysuria/abdominal pain/cough/nausea/vomiting/ diarrhea. during the hospital course she was treated for Klebsiella pneumonia UTI with IV Rocephin and she did well. She is still c/o vertigo and uses walker. She is awaiting placement after state evaluation. 06/08: She is afebrile and hemodynamically stable without any complaint except mild nausea and dizziness. She is ambulating well with walker. Patient Complains of: Neurological: Dizziness, No: Confusion, Weakness Cardiovascular: No: Chest Pain, Palpitations Respiratory: No: Cough, Congestion, Shortness of Breath Gastrointestinal: Nausea, No Vomiting Genitourinary: No Dysuria, No Hematuria Musculoskeletal: No: Pain, Sprain, Strain Physical Exam Vital Signs Date Time Temp Pulse Resp B/P (MAP) Pulse Ox O2 Delivery O2 Flow Rate FiO2 06/08/17 07:25 98.4 79 18 116/66 (83) 90 Room Air 06/05/17 05:25 1.0 General Appearance: Alert, Awake, No Acute Distress, Afebrile Eyes: PERRLA Respiratory: No Respiratory Distress GI: Soft and Non-Tender Extremities: Soft and Non Tender Psych: Alert & Oriented X3 Result Diagram: 06/06/1751206/06/17512 Assessment and Plan Problems: (1) Urinary tract infection Status: Acute Assessment & Plan: She presented with 4 days of chills and weakness with falls. She was febrile, had an elevated WBC and many WBC on the UA (she refused a catheter specimen). Her lactate, BP are normal. She was given a dose of Rocephin in the ER which was continued at 2gm IV q24h. Blood cultures are negative and urine culture shows Klebsiella sensitive to Rocephin. She also was on Keflex to complete therapy. A urinalysis was rechecked 06/04 because the patient had complaints of urinary frequency. Urinalysis was negative for infection. She does have vaginal itching, she will continue Monistat and take Diflucan today. 06/07: Her UTI has resoled and she has mild vaginal candidiasis and she is receiving Monistat. She is awaiting placement after state evaluation, she is medically cleared to go home. 06/08: UTI resolved and she is awaiting placement after state clearance (2) Falls Status: Chronic Assessment & Plan: She has a h/o of Meniere's but she reports these symptoms of dizziness are different. The Meclizine has seemed to decrease some of the dizziness, however, the patient still has symptoms. Physical therapy will continue to work with patient for Benign Paroxysmal Positional Vertigo. 06/07: She has chronic vertigo due to her underlying Miniere's disease and I have advised her to take Meclizine every morning. 06/08: She has mild dizziness and nausea I will give her Meclizine 25mg po qam (3) Diarrhea Status: Resolved Assessment & Plan: Her stool culture was negative as well as for C-Difficile. Her stools are now formed. (4) Bipolar disorder Status: Chronic Assessment & Plan: Continue Lamictal and prn Xanax. (5) Dysphagia Onset Date: 07/21/2014 Status: Chronic Assessment & Plan: She has had a dilatation for a stricture, but still having some problems. She is followed by Dr. Mccarthy. (6) Diabetes mellitus type 2, uncontrolled Status: Chronic Assessment & Plan: She has been chronically on metformin and Amaryl. (7) History of thyroidectomy Status: Chronic Assessment & Plan: Continue levothyroxine. (8) Hypomagnesemia Status: Resolved Assessment & Plan: Her magnesium is at 1.7. She will continue magnesium oxide oral replacement. We will continue to monitor labs. 06/07: I will get Mag level in am Time Spent on Plan of Care: < 30 min Copies to: EILEEN HERNANDEZ PA-C Exam Sepsis Risk: No Definite Risk Problem Qualifiers (1) Urinary tract infection: Urinary tract infection type: acute cystitis Hematuria presence: without hematuria Qualified Codes: N30.00 - Acute cystitis without hematuria (2) Falls: Encounter type: initial encounter Qualified Codes: W19.XXXA - Unspecified fall, initial encounter JAYESH AREVALO MD Jun 08, 2017 10:33
[2017-06-08] MEDS: GLIMEPIRIDE 2 MG TAB PO SCH (12:14)
[2017-06-08] MEDS: MECLIZINE HCL 25 MG TAB PO PRN ×2 (14:07→21:08)
[2017-06-08] MEDS: DIPHENOX/ATROPINE 2.5-0.025MG PO PRN ×2 (16:51→17:19)
[2017-06-08] MEDS: LOPERAMIDE HCL 2 MG CAP PO PRN (19:25)
[2017-06-08 19:30] VITALS: BP 130/89
[2017-06-08] MEDS ORDERED: NS(*) 0.9% 250 ML BAG 250 ML ONE (20:59)
[2017-06-08] MEDS: MELATONIN 3 MG TAB PO SCH (21:05)
[2017-06-08] MEDS: ceFAZolin(*) 1 GM VIAL 1 GM in NS(*) 0.9% 100 ML ADDVANT BAG 100 ML IV SCH (21:07)
[2017-06-08] MEDS: ALPRAZolam 1 MG TAB PO PRN (21:11)
[2017-06-08] MEDS: lamoTRIgine 100 MG TAB PO SCH (21:12)
[2017-06-08] MEDS: NS(*) 0.9% 250 ML BAG 250 ML IV PRN (21:13)
[2017-06-09 05:37] VITALS: BP 111/64
[2017-06-09] MEDS: LEVOTHYROXINE SOD 0.112 MG TAB PO SCH (05:38)
[2017-06-09 08:23] VITALS: BP 115/74
[2017-06-09] MEDS: ENOXAPARIN 40 MG/0.4ML SYR SC SCH (08:58)
[2017-06-09] MEDS: ESTROGENS CONJ 0.3 MG TAB PO SCH (08:58)
[2017-06-09] MEDS: MAGNESIUM OXIDE 400 MG TAB PO SCH ×2 (08:58→20:36)
[2017-06-09] MEDS: ceFAZolin(*) 1 GM VIAL 1 GM in NS(*) 0.9% 100 ML ADDVANT BAG 100 ML IV SCH (08:58)
[2017-06-09] MEDS: MECLIZINE HCL 25 MG TAB PO SCH (08:59)
[2017-06-09] MEDS: ASPIRIN 81 MG CHEW PO SCH (08:59)
[2017-06-09] MEDS: metFORMIN HCL 500 MG TAB PO SCH ×2 (09:01→17:33)
--- NOTE | 2017-06-09 10:25 | Hospitalist Progress Note ---
Subjective Progress Notes Subjective She had pyuria yesterday and a brief episode of dizziness. Staff found the caps taken off of her PICC line this morning. Physical Exam Vital Signs Date Time Temp Pulse Resp B/P (MAP) Pulse Ox O2 Delivery O2 Flow Rate FiO2 06/09/17 08:23 98.3 0 16 115/74 (88) 91 Room Air Intake and Output 06/10/17 07:00 Intake Total 0 ml Balance 0 ml Intake Oral 0 ml General Appearance: Alert, Awake, No Acute Distress Result Diagram: 06/06/1751206/06/17512 Assessment and Plan Problems: (1) Urinary tract infection Status: Acute Assessment & Plan: She presented with 4 days of chills and weakness with falls. She was febrile, had an elevated WBC and many WBC on the UA (she refused a catheter specimen). Her lactate, BP are normal. She was given a dose of Rocephin in the ER which was continued at 2gm IV q24h. Blood cultures are negative and urine culture shows Klebsiella sensitive to Rocephin. She also was on Keflex to complete therapy. A urinalysis was rechecked 06/04 because the patient had complaints of urinary frequency. Urinalysis was negative for infection. She does have vaginal itching, she will continue Monistat and take Diflucan today. On 06/08, she has dysuria and pyuria. She was started on Ancef. Will switch to Keflex and await cultures. Afebrile, BP/P stable. (2) Falls Status: Chronic Assessment & Plan: She has a h/o of Meniere's but she reports these symptoms of dizziness are different. The Meclizine has seemed to decrease some of the dizziness, however, the patient still has symptoms. Physical therapy will continue to work with patient for Benign Paroxysmal Positional Vertigo. (3) Diarrhea Status: Resolved Assessment & Plan: Her stool culture was negative as well as for C-Difficile. Her stools are now formed. (4) Bipolar disorder Status: Chronic Assessment & Plan: Continue Lamictal and prn Xanax. (5) Dysphagia Onset Date: 07/21/2014 Status: Chronic Assessment & Plan: She has had a dilatation for a stricture, but still having some problems. She is followed by Dr. Mccarthy. (6) Diabetes mellitus type 2, uncontrolled Status: Chronic Assessment & Plan: She has been chronically on metformin and Amaryl. (7) History of thyroidectomy Status: Chronic Assessment & Plan: Continue levothyroxine. (8) Hypomagnesemia Status: Resolved Assessment & Plan: Her magnesium is at 1.7. She will continue magnesium oxide oral replacement. We will continue to monitor labs. Exam Sepsis Risk: No Definite Risk Problem Qualifiers (1) Urinary tract infection: Urinary tract infection type: acute cystitis Hematuria presence: without hematuria Qualified Codes: N30.00 - Acute cystitis without hematuria (2) Falls: Encounter type: initial encounter Qualified Codes: W19.XXXA - Unspecified fall, initial encounter VALARIE GRIFFITH MD Jun 09, 2017 10:25
[2017-06-09] MEDS: GLIMEPIRIDE 2 MG TAB PO SCH (12:44)
[2017-06-09] MEDS: CEPHALEXIN MONO 500 MG CAP PO SCH ×3 (12:46→20:36)
[2017-06-09 13:36] VITALS: BP 117/66
[2017-06-09] MEDS ORDERED: PHENAZOPYRIDINE 200 MG TAB PO PRN (13:45)
[2017-06-09] MEDS: LOPERAMIDE HCL 2 MG CAP PO PRN (15:25)
[2017-06-09] MEDS: LACTOBACILLUS ACIDOPHILUS TAB PO SCH (17:33)
[2017-06-09] MEDS: MELATONIN 3 MG TAB PO SCH (20:36)
[2017-06-09] MEDS: ALPRAZolam 1 MG TAB PO PRN (20:36)
[2017-06-09] MEDS: MECLIZINE HCL 25 MG TAB PO PRN (20:36)
[2017-06-09] MEDS: lamoTRIgine 100 MG TAB PO SCH (20:36)
[2017-06-10] MEDS: LEVOTHYROXINE SOD 0.112 MG TAB PO SCH (05:24)
[2017-06-10 07:50] VITALS: BP 115/70
[2017-06-10] MEDS ORDERED: FLUCONAZOLE 150 MG TAB PO ONE (08:25)
[2017-06-10] MEDS: ASPIRIN 81 MG CHEW PO SCH (08:42)
[2017-06-10] MEDS: metFORMIN HCL 500 MG TAB PO SCH (08:42)
[2017-06-10] MEDS: MAGNESIUM OXIDE 400 MG TAB PO SCH (08:42)
[2017-06-10] MEDS: ALPRAZolam 1 MG TAB PO PRN (08:42)
[2017-06-10] MEDS: CEPHALEXIN MONO 500 MG CAP PO SCH ×2 (08:43→13:26)
[2017-06-10] MEDS: ESTROGENS CONJ 0.3 MG TAB PO SCH (08:43)
[2017-06-10] MEDS: LACTOBACILLUS ACIDOPHILUS TAB PO SCH (08:43)
[2017-06-10] MEDS: ENOXAPARIN 40 MG/0.4ML SYR SC SCH (08:43)
--- NOTE | 2017-06-10 09:06 | Hospitalist Progress Note ---
Subjective Progress Notes Subjective She has complaints still of vaginal itching. Patient Complains of: Cardiovascular: No: Chest Pain Respiratory: No: Shortness of Breath Physical Exam Vital Signs Date Time Temp Pulse Resp B/P (MAP) Pulse Ox O2 Delivery O2 Flow Rate FiO2 06/10/17 08:29 Room Air 06/10/17 07:50 98.1 85 12 115/70 (85) 90 General Appearance: Alert, Awake, No Acute Distress, Afebrile Cardiovascular: Regular Rate and Rhythm Respiratory: No Respiratory Distress, Clear to Auscultation Psych: Alert & Oriented X3, Appropriate Mood & Affect Result Diagram: 06/06/17 0513 06/10/17 0520 Assessment and Plan Problems: (1) Urinary tract infection Status: Acute Assessment & Plan: She presented with 4 days of chills and weakness with falls. She was febrile, had an elevated WBC and many WBC on the UA (she refused a catheter specimen). Her lactate, BP are normal. She was given a dose of Rocephin in the ER which was continued at 2gm IV q24h. Blood cultures are negative and urine culture shows Klebsiella sensitive to Rocephin. She also was on Keflex to complete therapy. A urinalysis was rechecked 06/04 because the patient had complaints of urinary frequency. Urinalysis was negative for infection. She does have vaginal itching, she will continue Monistat and take Diflucan. On 06/08, she has dysuria and pyuria. She was started on Keflex and await cultures. Afebrile, BP/P stable. (2) Falls Status: Chronic Assessment & Plan: She has a h/o of Meniere's but she reports these symptoms of dizziness are different. The Meclizine has seemed to decrease some of the dizziness, however, the patient still has symptoms. Physical therapy will continue to work with patient for Benign Paroxysmal Positional Vertigo. (3) Diarrhea Status: Resolved Assessment & Plan: Her stool culture was negative as well as for C-Difficile. Her stools are now formed. (4) Bipolar disorder Status: Chronic Assessment & Plan: Continue Lamictal and prn Xanax. (5) Dysphagia Onset Date: 07/21/2014 Status: Chronic Assessment & Plan: She has had a dilatation for a stricture, but still having some problems. She is followed by Dr. Mccarthy. (6) Diabetes mellitus type 2, uncontrolled Status: Chronic Assessment & Plan: She has been chronically on metformin and Amaryl. (7) History of thyroidectomy Status: Chronic Assessment & Plan: Continue levothyroxine. (8) Hypomagnesemia Status: Resolved Assessment & Plan: Her magnesium is at 1.7. She will continue magnesium oxide oral replacement. We will continue to monitor labs. Exam Sepsis Risk: No Definite Risk Problem Qualifiers (1) Urinary tract infection: Urinary tract infection type: acute cystitis Hematuria presence: without hematuria Qualified Codes: N30.00 - Acute cystitis without hematuria (2) Falls: Encounter type: initial encounter Qualified Codes: W19.XXXA - Unspecified fall, initial encounter RANI HENNING Jun 10, 2017 09:06
[2017-06-10] MEDS: MECLIZINE HCL 25 MG TAB PO SCH (09:54)
[2017-06-10] MEDS: GLIMEPIRIDE 2 MG TAB PO SCH (13:26)
[2017-06-10] MEDS ORDERED: CEPH500C24 PO (15:08)
[2017-06-10] MEDS ORDERED: LAMO100T52 PO (15:08)
--- NOTE | 2017-06-10 15:16 | Hospitalist Depart ---
Discharge Summary Reason for Hosp/Final Diag: (1) Urinary tract infection Status: Acute Hospital Course & Plan: She presented with 4 days of chills and weakness with falls. She was febrile, had an elevated WBC and many WBC on the UA (she refused a catheter specimen). Her lactate, BP are normal. She was given a dose of Rocephin in the ER which was continued at 2gm IV q24h. Blood cultures are negative and urine culture shows Klebsiella sensitive to Rocephin. She also was on Keflex to complete therapy. A urinalysis was rechecked 06/04 because the patient had complaints of urinary frequency. This culture was again positive for Klebsiella. She has been restarted on Keflex and will complete a course as an outpatient. (2) Falls Status: Chronic Hospital Course & Plan: She has a h/o of Meniere's but she reports these symptoms of dizziness are different. The Meclizine has seemed to decrease some of the dizziness, however, the patient still has symptoms. Physical therapy has cleared her to continue therapy through home health. (3) Diarrhea Status: Resolved Hospital Course & Plan: Her stool culture was negative for C-Difficile. (4) Bipolar disorder Status: Chronic Hospital Course & Plan: Continue Lamictal and prn Xanax. (5) Dysphagia Onset Date: 07/21/2014 Status: Chronic Hospital Course & Plan: She has had a dilatation for a stricture, but still having some problems. She is followed by Dr. Mccarthy. (6) Diabetes mellitus type 2, uncontrolled Status: Chronic Hospital Course & Plan: She has been chronically on metformin and Amaryl. (7) History of thyroidectomy Status: Chronic Hospital Course & Plan: Continue levothyroxine. (8) Hypomagnesemia Status: Resolved Hospital Course & Plan: Resolved with supplementation. Departure Latest Vital Signs Vital Signs 06/05/17 06/10/17 06/10/17 05:25 07:50 08:29 Temp 98.1 Pulse 85 Resp 12 B/P (MAP) 115/70 (85) Pulse Ox 90 O2 Delivery Room Air O2 Flow Rate 1.0 Weight (Pounds): 150 Result Diagram: 06/06/17 0513 06/10/17 0520 Condition: Improved Discharge: Home, Home Health PT/OT Follow Up For: PT Evaluation and Treat Home Health RN Follow Up For: Nursing Assessment Discharge Instructions Home Meds Active Scripts Lamotrigine (LAMOTRIGINE) 100 Mg Tablet, 100 MG PO QHS, #30 TAB Prov:SETH ARROYO DO 06/10/17 Cephalexin Monohydrate (CEPHALEXIN) 500 Mg Cap, 500 MG PO QID, #12 CAP Prov:SETH ARROYO DO 06/10/17 Reported Medications Glimepiride (GLIMEPIRIDE) 2 Mg Tablet, 2 MG PO QDAY 05/25/17 Meclizine Hcl (MECLIZINE HCL) 25 Mg Tab.chew, 25 MG PO TID Y for DIZZINESS, TAB.CHEW 05/25/17 Melatonin (MELATONIN) 5 Mg Tablet, 5 MG PO HS Y for SLEEP 05/25/17 Levothyroxine Sodium (SYNTHROID) 112 Mcg Tablet, 112 MCG PO DAILY, TAB 05/25/17 Calcium Carbonate (TUMS) 200 Mg Tab.chew, 200 MG PO PRN, TAB.CHEW 11/21/16 Tramadol Hcl (TRAMADOL HCL) 50 Mg Tablet, 50 MG PO Q4-6H Y for PAIN, TAB 10/10/16 Aspirin (ASPIRIN) 81 Mg Tab.chew, 81 MG PO QDAY, TAB.CHEW 05/25/15 Estrogens Conjugated (PREMARIN) 0.3 Mg Tab, 0.3 MG PO QDAY, TAB 04/26/15 Metformin Hcl (METFORMIN HCL) 1,000 Mg Tablet, 1 TAB PO BID TAKE ONE TABLET BY MOUTH TWO TIMES A DAY 07/21/14 Alprazolam (XANAX) 1 Mg Tablet, 1 TAB PO QID Y for ANXIETY TAKE ONE TABLET BY MOUTH FOUR TIMES A DAY 07/21/14 Discontinued Reported Medications Metoprolol Tartrate (METOPROLOL TARTRATE) 25 Mg Tablet, 1 TAB PO DAILY Y for SEE COMMENT, TAB PRN FOR HEART PALPITATIONS 05/25/17 Lamotrigine (LAMICTAL) 200 Mg Tablet, 200 MG PO DAILY 07/21/14 Diet: Diabetic Activity: As Tolerated, With Walker Special Instructions: Venous Thromboembolism Antithrombotics Is Pt On Any Antithrombotics?: No [id number] Certification Face to Face Home Health Certification Institutional Provider conducted the [id number] encounter. Electronic Undersigning Physician Certifies Home Health. I certify that the patient has been under my care and that I had a [id number] encounter that meets the physician [id number] encounter requirements with this patient. This patient is home-bound due to safety issues and continues to require assistance with ADL's. I certify that based on my findings, that Nursing, Aides and the following Home Health services are medically necessary: Medical Necessity: Nursing, Rehab Date Face to Face Conducted: Jun 10, 2017 Problem Qualifiers (1) Urinary tract infection: Urinary tract infection type: acute cystitis Hematuria presence: without hematuria Qualified Codes: N30.00 - Acute cystitis without hematuria (2) Falls: Encounter type: initial encounter Qualified Codes: W19.XXXA - Unspecified fall, initial encounter SETH ARROYO DO Jun 10, 2017 15:16
[2017-06-10] MEDS ORDERED: CEPHALEXIN MONO 500 MG CAP PO SCH ×2 (17:00)
== END 2017-06-10 16:15 | disposition home health service (06) | DRG 690 ==
LOC: ER 14:25 → MED 18:44
PROVIDERS: ADMIT Internal Medicine; ATTEND Internal Medicine
PROC: 02HV33Z Insertion of Infusion Device into Superior Vena Cava, Percutaneous Approach (ICD-10-PCS; principal; 2017-05-31)
DX: N30.00 Acute cystitis without hematuria (principal); H81.09 Meniere's disease, unspecified ear; B96.1 Klebsiella pneumoniae [K. pneumoniae] as the cause of diseases classified elsewhere; R19.7 Diarrhea, unspecified; R13.10 Dysphagia, unspecified; E83.42 Hypomagnesemia; R50.9 Fever, unspecified; K21.9 Gastro-esophageal reflux disease without esophagitis; N81.6 Rectocele; R00.2 Palpitations; F31.9 Bipolar disorder, unspecified; E11.65 Type 2 diabetes mellitus with hyperglycemia; R29.6 Repeated falls; R63.4 Abnormal weight loss; E66.3 Overweight; B37.3 Candidiasis of vulva and vagina; H81.10 Benign paroxysmal vertigo, unspecified ear; Z90.710 Acquired absence of both cervix and uterus; Z96.651 Presence of right artificial knee joint; Z90.89 Acquired absence of other organs; Z88.8 Allergy status to other drugs, medicaments and biological substances; Z88.6 Allergy status to analgesic agent; Z88.2 Allergy status to sulfonamides; Z86.14 Personal history of Methicillin resistant Staphylococcus aureus infection; Z68.28 Body mass index [BMI] 28.0-28.9, adult; E89.0 Postprocedural hypothyroidism; Z79.84 Long term (current) use of oral hypoglycemic drugs
CPT/HCPCS: 36415; 36416; 36569; 70450; 71046; 76937; 81001; 82040; 82247; 82310; 82374; 82435; 82565; 82947; 82948; 83605; 83630; 83735; 84075; 84132; 84155; 84295; 84450; 84460; 84484; 84520; 85025; 87040; 87045; 87077; 87088; 87186; 87205; 87324; 87449; 93005; 96361; 96374; 97161; 97166; 99285; C1751; J0690; J0696; J1642; J1650; J2405; J3475; J3480; J7030; J7040; J7050; J8597; S0119

== ENCOUNTER → 2017-05-25 | Outpatient (CLI) | payer MEDICARE, MEDICAID ==
[~2017-05-25] MED LIST: ALP1 PO; ALPR-434 PO; ASPI-816 PO; ASPI81TA60 PO; ASPI81TA94 PO; ASPRIN; ATEN-65 PO; CALC-488 PO; CALC-515 PO; CIP500 PO; DOCU-416 PO; DULA0.75 IM; EST3 PO; FLUC150T40 PO; GLI5 PO; GLIM2TAB43 PO; GLIP-154 PO; IBUP600T22 PO; LAM25 PO; LAMO200T46 PO; LAMO25TA4 PO; LEVO112T44 PO; MECL-81 PO; MECL25TA27 PO; MECL25TA9 PO; MELA1TAB27 PO; MELA1TAB9 PO; MELA3TAB31 PO; MELA5TAB6 PO; MET500 PO; METF-420 PO; METO25TA23 PO; METO25TA93 PO; OMEG300C PO; OMEP-114 PO; OMEP2.5S PO; OMEP40CA45 PO; ONDA4TAB97 PO; OXYB5TAB86 PO; PANT40TA65 PO; PEG4000S21 PO; PHEN200T32 PO; RANI-324 PO; SIM20 PO; SUCR1TAB85 PO; THYR120T10 PO; THYR60TA25 PO; TRA50 PO; TRAM-420 PO; [UNRECOGNIZED DRUG - CODE] MC; [UNRECOGNIZED DRUG - CODE] PO; oxygen
[2017-05-26 11:06] VITALS: BMI 28.3
== END ==
LOC: AMB 13:46
PROVIDERS: ATTEND Nurse Practitioner
DX: R55 Syncope and collapse (principal); R51 Headache; I95.9 Hypotension, unspecified; R00.0 Tachycardia, unspecified; S40.022A Contusion of left upper arm, initial encounter; S40.021A Contusion of right upper arm, initial encounter; S80.12XA Contusion of left lower leg, initial encounter; S80.11XA Contusion of right lower leg, initial encounter; W06.XXXA Fall from bed, initial encounter; Y92.003 Bedroom of unspecified non-institutional (private) residence as the place of occurrence of the external cause
CPT/HCPCS: A0425; A0427

== ENCOUNTER → 2017-08-02 | Outpatient (CLI) | payer MEDICARE, MEDICAID ==
[2017-05-26 11:06] VITALS: BMI 28.3
[~2017-08-02] MED LIST changes: -ASPI-816 PO; +ASPI-870 PO; +CEPH500C24 PO; +GLIM2TAB43 PO; +LAMO100T52 PO; +LEVO112T44 PO; +MECL25TA27 PO; +MELA5TAB6 PO; -METF-420 PO; +METF-421 PO; -RANI-324 PO; +RANI-366 PO
--- NOTE | 2017-08-09 17:30 | RADIOLOGY IMAGING REPORT ---
FACILITY: [facility] [place] PATIENT NAME: FABIENNE ABERNATHY : [id number] MR: [id number] V: [id number] EXAM DATE: [id number] ORDERING PHYSICIAN: EILEEN HERNANDEZ TECHNOLOGIST: Julia Givens EXAMINATION:TWO-DIMENSIONAL ECHOCARDIOGRAPH REASON:DIZZINESS 2D Measurements (normal values in centimeters) LV endLV endRV endVent.LV PostAorticLeftPercent DiastolicSystolicDiastolicSeptumWallRootAtriumShortening (3.5-5.7)(0.9-2.6)(0.6-1.1)(0.6-1.1)(2.0-3.7)(1.9-4.0)(25-35%) [id number] STROKE VOLUME: 52.6ml ESTIMATED EJECTION FRACTION:69% This is a 2D Color & Spectral Doppler echocardiogram performed on a 61 year old female patient with complaint of dizziness. Study is of good technical quality done with patient in sinus rhythm. The left ventricle is normal in terms wall thickness & systolic function. The LVEF 65%. There are no regional wall abnormalities. The left atrium is mildly enlarged. The right ventricle & right atrium are grossly normal size. The Mitral valve is structurally normal. There is no mitral valve regurgitation of note. The aortic valve is trileaflet & normal. There is mild aortic insufficiency detected by Color Doppler. The pulmonic & tricuspid valves are normal. There is trivial pulmonic insufficiency. There is trace tricuspid valve regurgitation. Right ventricular systolic pressure is within normal limits. Ascending aorta is normal measuring 3.0cm. Atrial septum appears to be intact without shunting by color flow doppler. There are no cardiac masses. \ There is no pericardial effusion. OVERALL IMPRESSION: 1. Normal left ventricular systolic function, LVEF 65%, no regional wall motion abnormalities. 2. Mild aortic insufficiency. 3. Mild left atrial enlargement. Dictated by: Jose Luis Peace on 08/02/2017 at 16:04 Transcribed by: [place]IA on 08/06/2017 at 7:45 Approved by: Jose Luis Peace on 08/09/2017 at 17:29 [facility]
== END ==
LOC: US 07-26 03:14
PROVIDERS: ATTEND Physician Assistant
DX: I35.0 Nonrheumatic aortic (valve) stenosis (principal); I51.7 Cardiomegaly
CPT/HCPCS: 93306

== ENCOUNTER → 2017-12-20 | Outpatient (CLI) | payer MEDICARE, MEDICAID ==
[2017-05-26 11:06] VITALS: BMI 28.3
[~2017-12-20] MED LIST changes: -METF-421 PO; +METF-452 PO; +NITR-105 PO; +TRI100 FT
== END ==
LOC: ZZSENDIN 11:47
PROVIDERS: ATTEND Urology
DX: N39.0 Urinary tract infection, site not specified (principal)
CPT/HCPCS: 81001

== ENCOUNTER → 2018-02-05 | Outpatient (REF) | payer MEDICARE, MEDICAID ==
[2017-05-26 11:06] VITALS: BMI 28.3
== END ==
LOC: ZZSENDIN 14:54
PROVIDERS: ATTEND Family Medicine
DX: R30.0 Dysuria (principal); R82.79 Other abnormal findings on microbiological examination of urine
CPT/HCPCS: 81001; 87088

== ENCOUNTER → 2018-02-14 | Outpatient (CLI) | payer MEDICARE, MEDICAID ==
[2017-05-26 11:06] VITALS: BMI 28.3
--- NOTE | 2018-02-14 10:32 | RADIOLOGY IMAGING REPORT ---
FACILITY: [facility] PATIENT NAME: Krisetn Trinh : 1955 MR: [id number] V: [id number] EXAM DATE: ORDERING PHYSICIAN: GUILLE RANGEL TECHNOLOGIST: Location: [facility] - [place], [place] Patient: Kristen Trinh : 1955 Visit/Account:[id number] Date of Sevice: 02/14/2018 ABDOMEN/PELVIS W/O CONTRAST HISTORY: Microscopic hematuria, appearing focal pain, history of bladder sling TECHNIQUE: Axial images acquired through the abdomen/pelvis. Coronal and sagittal reformatting also performed. No IV contrast administered.Dose Lowering Technique One of the following dose optimization techniques was utilized in the performance of this exam: Autom ated exposure control; adjustment of the mA and/or kV according to the patient's size; or use of an i terative reconstruction technique. Specific details can be referenced in the facility's radiology C T exam operational policy. COMPARISON: December 03, 2016 FINDINGS: Visualized lung bases: Negative. Hepatobiliary: 1.5 cm hypoattenuating lesion in the medial segment left lobe of the liver appears st able could represent an area of focal fatty infiltration Spleen: Negative. Adrenals: Negative. Pancreas: Negative. Kidneys ureters and bladder: Numerous parapelvic cysts again seen in both kidneys. There is a puncta te 1 mm nonobstructing calculus lower pole of the right kidney. There is a an additional 1 mm puncta te calculus mid to upper pole the left kidney no evidence of hydronephrosis or hydroureter Genitalia: Postsurgical changes from hysterectomy. There is a 2.8 cm left adnexal hypodensity which may represent a septated cyst or several contiguous cysts. This is minimally more prominent when co mpared to the prior study. GI: No evidence of bowel obstruction or bowel wall thickening Vessels/spaces/nodes: Negative. Bones/soft tissues: Surgical clips project just anterior to the pubis There are mild spondylotic changes of the lumbar spine Additional findings: None pertinent. IMPRESSION: 1.5 cm hypoattenuating lesion medial segment left lobe liver appears stable Multiple parapelvic cysts in both kidneys Tiny nonobstructing calculi in both kidneys 2.8 cm left adnexal hypodensity which may represent a septated cyst or several contiguous cysts. Thi s is minimally more prominent when compared the prior study. Concern pelvic ultrasound is recommende d. Additional chronic findings as described Report Dictated By: Nava Wu MD at 02/14/2018 10:14 AM Report E-Signed By: Nava Wu MD at 02/14/2018 10:28 AM WSN:[id number]
== END ==
LOC: CT 02-11 01:50
PROVIDERS: ATTEND Family Medicine
DX: R31.9 Hematuria, unspecified (principal); K76.89 Other specified diseases of liver; N28.1 Cyst of kidney, acquired; N20.0 Calculus of kidney
CPT/HCPCS: 74176